=== PATIENT | male | born 1955 | race Caucasian/White ===

== ENCOUNTER → 2022-04-05 | Outpatient (CLI) | payer MEDICAID, SELFPAY | END | disposition home or self-care (01) | LOC: SL 20:10 | PROVIDERS: PCP Student in an Organized Health Care Education/Training Program; Referring Provider Psychiatry & Neurology Sleep Medicine; Visit Provider Psychiatry & Neurology Sleep Medicine | DX: G47.33 Obstructive sleep apnea (adult) (pediatric) (principal); E66.01 Morbid (severe) obesity due to excess calories; Z68.42 Body mass index [BMI] 45.0-49.9, adult | CPT/HCPCS: 95811 ==

== ENCOUNTER → 2022-05-01 | Outpatient (CLI) | payer MEDICAID, SELFPAY | END | disposition home or self-care (01) | LOC: SL 20:24 | PROVIDERS: PCP Student in an Organized Health Care Education/Training Program; Referring Provider Psychiatry & Neurology Sleep Medicine; Visit Provider Psychiatry & Neurology Sleep Medicine | DX: G47.33 Obstructive sleep apnea (adult) (pediatric) (principal) | CPT/HCPCS: 95811 ==

== ENCOUNTER 2022-05-02 17:00 | Outpatient (RCR) | payer MEDICAID, SELFPAY ==
--- NOTE | 2021-12-13 17:40 | HP.PTEVAL_ITS ---
Patient's Visit Information VALENTINO MONTES is a 66 year old M referred to Physical Therapy by Dr. Trent Do DO with a diagnosis of muscle weakness of extremity, inclusion body myositis. Date of Evaluation: 12/13/21 Physical Therapist: LUZ MARIA Sanches - Visit Plan Frequency: 2x /Week Duration: 2 Months Plan: 2X/ week for 8-12 weeks for core strength, LE strength, transfers, gait training, endurance, bed mobility, posture with HEP. HEP: LAQ, SKF with yellow band (daughter to help), Bridges (daughter to help with support and bending of R leg), standing up straight with TKE B and GS in standing - Subjective Dr is telling him that he is having muscle weakness due to myositis and getting weaker. This has been a steady decline over last couple of years. If he falls he has to have big guys to pick him up. He is very careful not to fall. He has had 6 falls in the last 6 months. He has motorized scooter for outside. His house is small and uses the diaz and furniture to balance. He does not walk a whole lot around the house. He does not use any steps in the house. He has a ramp to get into the house. He has never tried PT before. He was in the hospital in March but never got around to schedule it. He is able to get into a car as long as high like an SUV. He has a double raised toilet seat and still struggles to get out of a chair (23 inches to get up out of a chair). Pt was told that he would be in a chair by the end of the year. 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 He has used the walker since March. He sleeps off and on in a bed or a recliner. He can get up out of a bed if he swings the right way. He has a wall by his bed to help him. He lives alone. His daughter checks on him everyday. Pt would like to be walk without a walker again. He can not stand greater than 1 minute to cook his meals. He has recliner lift chair. He has abnormal swelling in B legs and R arm. He wears diabetic style stockings. - Pain LBP Pain Intensity (Out of 10): 3 Pain Intensity Range: 10 Comment: percacet - Objective Gait: walks with a rolling walker with small steppage gait with flexed trunk. Pt is not able to sit in a regular chair as he will not be able to get up so he brings a tall stool to sit on. LE MMT: R hip flex 2-/5, L hip flex 3-/5, B knee ext 3-/5, B knee flex 3-/5, R hip abd 3+/5 and L hip abd 4-/5, pt is not able to get bottom off the mat for a bridge. Pt is able to go sit to supine [place]. Pt needs R leg placement into flexion in order to roll to his R side. He is able to roll to the L side [place] with his R leg in a bend position. L sidelying to sit pt needed min A-mod A to get up to a seated position. Pt is able to do standing hip abd, hip flexion 1 X 10 on each limb standing at the walker. Patellar DTR 0/3. Sit to stand: from mat table that was 22 inches from the ground with feet flat on the floor and extreme wide base of support. He pulled on the walker and struggled to get up but did on second attempt. Standing with small support against back of legs 60 seconds. Pt was able to tolerated some LE exercises including LAQ and yellow T-band HS curls with the help of therapist holding onto the band. - Balance/Special Test Scores Lower Extremity Functional Score: 7 - Goals Goal 1:: I HEP Goal Time Frame: 8-12 Weeks Goal 2:: Be able to stand to microwave his meals (3 minutes). He was able to stand for 60 seconds at time of eval. Goal Time Frame: 8-12 Weeks Goal 3:: Sit to stand out of a chair with 2 cushions on it with arm support to a walker Goal Time Frame: 8-12 Weeks Goal 4:: Be able to lift his leg up to have someone help get his shoes on or get his leg up and into the car with less assistance. Goal Time Frame: 8-12 Weeks Goal 5:: Be able pull R leg into knee flexion bridge position to be able to complete HEP [place] Goal Time Frame: 8-12 Weeks - Rehabilitation Potential Rehabilitation Potential: Fair - Anticipated Interventions Patient/Client Instruction: Educate patient on: Condition, Plan of Care For the Purpose of:: To increase ROM, To improve nutrient delivery to tissue, To improve muscle performance and motor function, To improve ability to perform ADL's, To increase tolerance to activity/condition/position, To improve performance and independence with ADL's, To decrease level of supervision to perform tasks, To improve ability of physical actions for home/community/work/leisure, To improve gait and locomotor functions, To improve health of tissue, To increase flexibility/ROM, To improve endurance, To improve balance, To improve safety with gait Therapeutic Exercise to Include: Strength training, Endurance training, Balance training, Postural training, Flexibilty training, Gait and locomotor training, Neuromotor development, Passive ROM, Active ROM, Dynamic Lumbar Stabilization, Scapular Strength/Stabilization For the Purpose of:: To decrease pain, To improve nutrient delivery to tissue, To increase oxygenation perfusion, To improve muscle performance and motor function, To improve ability to perform ADL's, To increase tolerance to activity/condition/position, To improve performance and independence with ADL's, To decrease level of supervision to perform tasks, To improve ability of physical actions for home/community/work/leisure, To improve gait and locomotor functions, To improve health of tissue, To increase flexibility/ROM, To improve endurance, To improve balance, To improve safety with gait Functional Training to Include: Gait training For the Purpose of:: To improve gait and locomotor functions, To improve safety with gait Manual Therapy Techniques to Include: Passive ROM For the Purpose of:: To increase ROM, To improve nutrient delivery to tissue Thank you for the opportunity to evaluate your patient. For Medicare and Medicare HMO plans, please review the plan of care and approve it. It will need to be FAXED BACK to us at [phone] for Medicare purposes. For Medicare only, by signing this I certify the plan of care. Please let me know if there are questions or concerns regarding this plan of care. Physician Signature: Date:
--- NOTE | 2022-01-02 12:12 | HP.OTEVAL ---
Patient's Visit Information VALENTINO MONTES is a 66 year old M, referred to Occupational Therapy by Dr. Trent Do DO, with a diagnosis of Myositis. Date of Evaluation: 01/01/22 Occupational Therapist: GLORIA Alcantara/Nate, CHT - Subjective This 66 year old male was seen for OT eval with dx of muscle weakness of extremity, inclusion body myositis- Pt states he has been struggling with weakness for about a year- just had muscle biopsy about 2 months ago that states muscle is turning into fat instead of muscled. pt states from shoulders down his arms are weak. pt states he does not carry a gallon milk due to hand weakness. pt states he can not bend over to put socks or shoes because he can not bend over- or lift his legs to put clothes on. 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 - ADLs Fasteners: Buttons, Zippers, Snaps, [place] Comments: use velcro shoe Eating: Use silverware, Cut food Bathing: Handle washcloth & soap, Squeeze shampoo bottle Comments: stands in shower Toileting: Manage clothing, Perineal care Comments: dtr provides meals and cooks - ROM Shoulder: Right/left WNL Elbow: right/ left WNL Forearm: right/left WNL Wrist: right/left WNL ROM Comments: right hand can form a composite fist. left hand is 3 away from composite fist - Strength Shoulder: right 10 peak force left 14 peak force on micro FET2 Elbow: right biceps 20 left 16 biceps triceps 14 peak force School Operations Manager: right 15# left No ability Lateral Pinch: right 2# left 4# Tripod Pinch: right unable left unable Strength Comments: pt demo with intrinsic pulse crystal growing technician vs composite fist. indicating muscle weakness form FDP & FDS - Sensation Sensation Comments: denies - In-Hand Manipulation Finger to Palm Translation: Mild - Right, Moderate - Left Palm to Finger Translation: Mild - Right, Moderate - Left - Quick DASH-Disab of Arm,Shoulder& Hand Quick DASH Score: 61.3625 - Goals Goal:: pt will demo BUE testing of peak force on micro FET2 at greater than 20 peak force indicating increase in BUE strength to perform ADls and IADLs by dc. pt will demo MOHAMUD functional tsf using UE to push off of seated surface indicating increase in BUE strength by dc. pt will demo a increase in bilateral crystal growing technician strength by 30# to increase pts functional strength for ADLs and IADLs by d/c Goal:: pt will demo a increase in left PIPJ flexion and DIPJ flex increasing pts composite fist to hold onto small objects ind. by d/c Goal:: pt will demo understanding of using ad. eq. for ADLs and IADLs to increase ind. and safety when performing occupations of daily living by d.c - Rehabilitation General Assessment: pt demo weakness in BUE limiting pts functional use of bilateral UE for ADLs and IADLs. pt would benefit from skilled OT services 2-3x week for 6 weeks to increase pts functional strength to perform ADls and IADLs. therapy will initiate PRE and ad. eq. to increase pts ind. with ADls and IADLS. pt agrees to POC Rehabilitation Potential: Good - Anticipated Interventions Strengthening, Fine Motor Coord/Jake, Education re assistive Equipment, Education re Diagnosis, Caregiver Training, Home Program - Visit Plan Frequency: 2-3x /Week Duration: 4 Weeks TEXT: Thank you for the opportunity to evaluate your patient. For Medicare and Medicare HMO plans, please review the plan of care and approve it. It will need to be FAXED BACK to us at [phone] for Medicare purposes. Please let me know if there are questions or concerns regarding this plan of care. Physician Signature: Date:
--- NOTE | 2022-01-31 15:58 | HP.PTREVAL_ITS ---
Dr. Trent Do, DO, It has been my pleasure to treat VALENTINO MONTES over the last 11 visits for muscle weakness of extremity, inclusion body myositis. Please see the progress note below for an update on the physical therapy plan of care! Subjective: Pt feels that things are going ok. The nu-step helps. Last time he was put on his back and trying to get knees up to chest and that was painful. Pt paid for it a little bit later. He feels that he is close to losing that aspect. He feels that PT is helping but not very much and not a day and night difference. He feels that getting off commode is a little easier. Once he is moving around it seems somewhat easeir. Pt wants to keep going in PT to see if he can pick his feet up off his ground. He wants to be able to get up a step even with difficulty to be able to go get his hair cut. (one railing and 2-3 steps). Some days he can stand 2-3 min at microwave and other days like today he can only stand 40 seconds. Objective/Function: still unable to lift legs to complete functional task. Attempted chair with 1 blue bad with sit to stand using his arms at the // bars and he was not able to get to standing Plan Plan: Continue to progress towards goals. 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 2x/ week for 8- 12 weeks for core strength, LE strength, transfers, gait training, endurance, bed mobility, posture with HEP Balance/Gait/Functional tests - Balance/Special Test Scores Lower Extremity Functional Score: 12 Goals Goal 1:: I HEP Goal Time Frame: 8-12 Weeks Goal Progress: Progressing Goal 2:: Be able to stand to microwave his meals (3 minutes). He was able to stand for 60 seconds at time of eval. Goal Time Frame: 8-12 Weeks Goal Progress: Progressing Goal 3:: Sit to stand out of a chair with 2 cushions on it with arm support to a walker Goal Time Frame: 8-12 Weeks Goal Progress: Progressing Goal 4:: Be able to lift his leg up to have someone help get his shoes on or get his leg up and into the car with less assistance. Goal Time Frame: 8-12 Weeks Goal 5:: Be able pull R leg into knee flexion bridge position to be able to complete HEP [place] Goal Time Frame: 8-12 Weeks Anticipated Interventions Patient/Client Instruction: Educate patient on: Condition, Plan of Care For the Purpose of:: To increase ROM, To improve nutrient delivery to tissue, To improve muscle performance and motor function, To improve ability to perform ADL's, To increase tolerance to activity/condition/position, To improve performance and independence with ADL's, To decrease level of supervision to per form tasks, To improve ability of physical actions for home/community/work/leisure, To improve gait and locomotor functions, To improve health of tissue, To increase flexibility/ROM, To improve endurance, To improve balance, To improve safety with gait Therapeutic Exercise to Include: Strength training, Endurance training, Balance training, Postural training, Flexibilty training, Gait and locomotor training, Neuromotor development, Passive ROM, Active ROM, Dynamic Lumbar Stabilization, Scapular Strength/Stabilization For the Purpose of:: To decrease pain, To improve nutrient delivery to tissue, To increase oxygenation perfusion, To improve muscle performance and motor function, To improve ability to perform ADL's, To increase tolerance to a ctivity/condition/position, To improve performance and independence with ADL's, To decrease level of supervision to perform tasks, To improve ability of physical actions for home/community/work/leisure, To improve gait and locomotor functions, To improve health of tissue, To increase flexibility/ROM, To improve endurance, To improve balance, To improve safety with gait Functional Training to Include: Gait training For the Purpose of:: To improve gait and locomotor functions, To improve safety with gait Manual Therapy Techniques to Include: Passive ROM For the Purpose of:: To increase ROM, To improve nutrient delivery to tissue Please do not hesitate to contact me at [phone] by phone or if you have questions or concerns regarding this new plan of care! Sincerely, LUZ MARIA Sanches
--- NOTE | 2022-03-07 08:26 | HP.OTDCSUM_ITS ---
It has been my pleasure to treat VALENTINO MONTES under orders from Dr. Trent Do, , for the diagnosis of Myositis for a total of 11 visit(s). Please see the following information for a summary of their discharge status. % Improvement: 10 Objective/Function: R 20# director of operations support. L director of operations support 18#. L composite fist -2 1/2 inches from composite fist using MF R -1 1/2 using MF. He has participated in strengthening using BTE, isometric exercises, weights and theraputty. Pt. has plateaued at this point. Reviewed HEP isometric exercises, pt. verbalized understanding. Patient Goals: Regain Strength, Improve Fine Motor Skills, Be More Independent in ADLS Goal:: pt will demo BUE testing of peak force on micro FET2 at greater than 20 peak force indicating increase in BUE strength to perform ADls and IADLs by dc. pt will demo MOHAMUD functional tsf using UE to push off of seated surface indica ting increase in BUE strength by dc. pt will demo a increase in bilateral director of operations support strength by 30# to increase pts functional strength for ADLs and IADLs by d/c Goal:: pt will demo a increase in left PIPJ flexion and DIPJ flex increasing pts composite fist to hold onto small objects ind. by d/c Goal:: pt will demo understanding of using ad. eq. for ADLs and IADLs to increase ind. and safety when performing occupations of daily living by d.c Plan: check back in 2 weeks (March 05, 2022 at 4) to review measurements to see if he is working/doing exercises at home, then decide if pt. should continue skilled OT services. Discharge Comments: Pt. reported a 10 percent of improvement. He has attended 11 skilled OT treatments. Quick Dash score of 40 today, on eval was 38. Pt. improved with B shoulder strength goal partially met. Pt. has modified his seat height positions and uses higher seat heights, such as bringing in his own higher stool. Ladies Suit Operator strength improved from R 15# to 20#, L from unable to 18#. He is short of making composite fists R -1 1/2 inches using MF, and L -2 1/2 inches using MF. pt demo understanding of using ad. eq. to increase his safety and MOHAMUD with ADLs. pt agree with D/C and to return to if change in status. pt agree. If there are questions or concerns regarding this patient's occupational therapy, please fell free to call me at [phone]. Thank you for the referral of this patient. Sincerely, Tawana Caruso OTR/L, CHT
--- NOTE | 2022-03-29 07:48 | HP.OTEVAL ---
Patient's Visit Information VALENTINO MONTES is a 66 year old M, referred to Occupational Therapy by Dr. Trent Do DO, with a diagnosis of lymphedema of BLE. Date of Evaluation: 03/28/22 Occupational Therapist: Tawana Caruso, GLORIA/Nate, CHT - Subjective This 66 year old male was seen for OT eval dx with LE edema- pt states he has had swelling in his LE for about 5 years- pt states he would sleep and his legs would go down in size- but with the muscle wasting he does notice increase swelling- pt states he is on a water pill 1 x a day and this does help- if he doesn't take his water pill swelling increases. pt states he has not used compression socks in the past- pts dtr states she has zen compression socks for him but they have not worn them yet. Pt would like to know what his options are in mtg. his swelling. - ADLs Fasteners: Buttons, Zippers, Snaps, [place] Comments: use velcro shoe Eating: Use silverware, Cut food Bathing: Handle washcloth & soap, Squeeze shampoo bottle Comments: stands in shower Toileting: Manage clothing, Perineal care Comments: dtr provides meals and cooks - ROM Shoulder: Right/left WNL Elbow: right/ left WNL Forearm: right/left WNL Wrist: right/left WNL ROM Comments: right hand can form a composite fist. left hand is 3 away from composite fist - Strength Shoulder: right 10 peak force left 14 peak force on micro FET2 Elbow: right biceps 20 [id number] left 16 biceps triceps 14 peak force Senior Mechanical Design Engineer: right 15# left No ability Lateral Pinch: right 2# left 4# Tripod Pinch: right unable left unable Strength Comments: pt demo with intrinsic pulse sociology research assistant vs composite fist. indicating muscle weakness form FDP & FDS - Lymphedema (Circumferential Measure) Mid-foot: right 31cm left 30cm Ankle: right 34cm left 33cm Lower calf: right 39cm left 37.5cm Largest calf: right 45cm left 45cm Below knee: right 42cm left 41cm - Sensation Sensation Comments: denies - In-Hand Manipulation Finger to Palm Translation: Mild - Right, Moderate - Left Palm to Finger Translation: Mild - Right, Moderate - Left - Quick DASH-Disab of Arm,Shoulder& Hand Quick DASH Score: 65.9075 - Goals Demonstrate a 20% reduction in edema by d/c: Yes Demonstrate adequate knowledge of self-massage by 2nd week: Yes Demonstrate adequate knowledge skin care/prec by 2nd week: Yes Demonstrate adequate knowledge therapeutic exercises by d/c: Yes Select approp compression garment w/donning/care/wear by d/c: Yes Voice need to replace compression garment every 4-6mo by dc: Yes Goal:: pt will demo BUE testing of peak force on micro FET2 at greater than 20 peak force indicating increase in BUE strength to perform ADls and IADLs by dc. pt will demo MOHAMUD functional tsf using UE to push off of seated surface indicating increase in BUE strength by dc. pt will demo a increase in bilateral sociology research assistant strength by 30# to increase pts functional strength for ADLs and IADLs by d/c Goal:: pt will demo a increase in left PIPJ flexion and DIPJ flex increasing pts composite fist to hold onto small objects ind. by d/c Goal:: pt will demo understanding of using ad. eq. for ADLs and IADLs to increase ind. and safety when performing occupations of daily living by d.c - Rehabilitation General Assessment: pt demo with LE swelling- pt would benefit from skilled OT services 2-3 visits to ensure understanding of dx, treatments and home mtg. of LE edema- Today therapist ed. pt and pts dtr on using Velcro closure compression garments due to pts limitations with sociology research assistant and pinch strength- Therapist also ed. pt on Lymph stim Exercises and self manual lymph drainage massage. pt was given handout on ex. and also ed. on need of compression device ( 20-30 mmHg) socks or velcro closure device- pt can get fitted at DME supplies as [employer] or [employer]- pt receptive but unsure of ability due to weakness- pt to return once he gets his compression garment to ensure correct donning or doffing and fit- pt agrees to POC. Rehabilitation Potential: Questionable - Anticipated Interventions Education re Diagnosis, Manual Lymph Drainage, Education re Life-long lymphedema Management, Education re Skin Care and Precautions, Education re Self Massage Techniques, Education re Correct Donning Tech,Care&Wearing Sched Comp Garments, Caregiver Training, Home Program - Visit Plan Frequency: 2-3x /Week Duration: 4 Weeks TEXT: Thank you for the opportunity to evaluate your patient. For Medicare and Medicare HMO plans, please review the plan of care and approve it. It will need to be FAXED BACK to us at [phone] for Medicare purposes. Please let me know if there are questions or concerns regarding this plan of care. Physician Signature: Date:
--- NOTE | 2022-03-29 08:08 | HP.OTEVAL_ITS ---
Patient's Visit Information VALENTINO MONTES is a 66 year old M, referred to Occupational Therapy by Dr. Trent Do DO, with a diagnosis of lymphedema of BLE. Date of Evaluation: 03/28/22 Occupational Therapist: Tawana Caruso, GLORIA/Nate, CHT - Subjective This 66 year old male was seen for OT eval dx with LE edema- pt states he has had swelling in his LE for about 5 years- pt states he would sleep and his legs would go down in size- but with the muscle wasting he does notice increase swelling- pt states he is on a water pill 1 x a day and this does help- if he doesn't take his water pill swelling increases. pt states he has not used compression socks in the past- pts dtr states she has zen compression socks for him but they have not worn them yet. Pt would like to know what his options are in mtg. his swelling. - ADLs Fasteners: Buttons, Zippers, Snaps, [place] Comments: use velcro shoe Eating: Use silverware, Cut food Bathing: Handle washcloth & soap, Squeeze shampoo bottle Comments: stands in shower Toileting: Manage clothing, Perineal care Comments: dtr provides meals and cooks - ROM Shoulder: Right/left WNL Elbow: right/ left WNL Forearm: right/left WNL Wrist: right/left WNL ROM Comments: right hand can form a composite fist. left hand is 3 away from composite fist - Strength Shoulder: right 10 peak force left 14 peak force on micro FET2 Elbow: right biceps 20 [email or web address] left 16 biceps triceps 14 peak force Orthopedic Designer: right 15# left No ability Lateral Pinch: right 2# left 4# Tripod Pinch: right unable left unable Strength Comments: pt demo with intrinsic pulse churn driller vs composite fist. 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 Ankle: right 34cm left 33cm. Lower calf: right 39cm left 37.5cm. Largest calf: right 45cm left 45cm. Below knee: right 42cm left 41cm - Sensation Sensation Comments: denies - In-Hand Manipulation Finger to Palm Translation: Mild - Right, Moderate - Left Palm to Finger Translation: Mild - Right, Moderate - Left - Lower Limb Functional Index Lower Extremity Functional Score: 9 - Quick DASH-Disab of Arm,Shoulder& Hand Quick DASH Score: 65.9075 - Goals Demonstrate a 20% reduction in edema by d/c: Yes Demonstrate adequate knowledge of self-massage by 2nd week: Yes Demonstrate adequate knowledge skin care/prec by 2nd week: Yes Demonstrate adequate knowledge therapeutic exercises by d/c: Yes Select approp compression garment w/donning/care/wear by d/c: Yes Voice need to replace compression garment every 4-6mo by dc: Yes Goal:: pt will demo BUE testing of peak force on micro FET2 at greater than 20 peak force indicating increase in BUE strength to perform ADls and IADLs by dc. pt will demo MOHAMUD functional tsf using UE to push off of seated surface indicating increase in BUE strength by dc. pt will demo a increase in bilateral churn driller strength by 30# to increase pts functional strength for ADLs and IADLs by d/c Goal:: pt will demo a increase in left PIPJ flexion and DIPJ flex increasing pts composite fist to hold onto small objects ind. by d/c Goal:: pt will demo understanding of using ad. eq. for ADLs and IADLs to increase ind. and safety when performing occupations of daily living by d.c - Rehabilitation General Assessment: pt demo with LE swelling- pt would benefit from skilled OT services 2-3 visits to ensure understanding of dx, treatments and home mtg. of LE edema- Today therapist ed. pt and pts dtr on using Velcro closure compression garments due to pts limitations with churn driller and pinch strength- Therapist also ed. pt on Lymph stim Exercises and self manual lymph drainage massage. pt was given handout on ex. and also ed. on need of compression device ( 20-30 mmHg) socks or velcro closure device- pt can get fitted at DME supplies as [employer] or [employer]- pt receptive but unsure of ability due to weakness- pt to return once he gets his compression garment to ensure correct donning or doffing and fit- pt agrees to POC. Rehabilitation Potential: Questionable - Anticipated Interventions Education re Diagnosis, Manual Lymph Drainage, Education re Life-long lymphedema Management, Education re Skin Care and Precautions, Education re Self Massage Techniques, Education re Correct Donning Tech,Care&Wearing Sched Comp Garments, Caregiver Training, Home Program - Visit Plan Frequency: 2-3x /Week Duration: 4 Weeks TEXT: Thank you for the opportunity to evaluate your patient. For Medicare and Medicare HMO plans, please review the plan of care and approve it. It will need to be FAXED BACK to us at [phone] for Medicare purposes. Please let me know if there are questions or concerns regarding this plan of care. Physician Signature: Date:
--- NOTE | 2022-03-29 08:09 | HP.OTEVAL_ITS ---
Patient's Visit Information VALENTINO MONTES is a 66 year old M, referred to Occupational Therapy by Dr. Trent Do DO, with a diagnosis of lymphedema of BLE. Date of Evaluation: 03/28/22 Occupational Therapist: Tawana Caruso, GLORIA/Nate, CHT - Subjective This 66 year old male was seen for OT eval dx with LE edema- pt states he has had swelling in his LE for about 5 years- pt states he would sleep and his legs would go down in size- but with the muscle wasting he does notice increase swelling- pt states he is on a water pill 1 x a day and this does help- if he doesn't take his water pill swelling increases. pt states he has not used compression socks in the past- pts dtr states she has zen compression socks for him but they have not worn them yet. Pt would like to know what his options are in mtg. his swelling. - ADLs Fasteners: Buttons, Zippers, Snaps, [place] Comments: use velcro shoe Eating: Use silverware, Cut food Bathing: Handle washcloth & soap, Squeeze shampoo bottle Comments: stands in shower Toileting: Manage clothing, Perineal care Comments: dtr provides meals and cooks - ROM Shoulder: Right/left WNL Elbow: right/ left WNL Forearm: right/left WNL Wrist: right/left WNL ROM Comments: right hand can form a composite fist. left hand is 3 away from composite fist - Strength Shoulder: right 10 peak force left 14 peak force on micro FET2 Elbow: right biceps 20 [id number] left 16 biceps triceps 14 peak force Supervisor Inventory Merchandising: right 15# left No ability Lateral Pinch: right 2# left 4# Tripod Pinch: right unable left unable Strength Comments: pt demo with intrinsic pulse extrusion die repair manager vs composite fist. 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 Ankle: right 34cm left 33cm. Lower calf: right 39cm left 37.5cm. Largest calf: right 45cm left 45cm. Below knee: right 42cm left 41cm - Sensation Sensation Comments: denies - In-Hand Manipulation Finger to Palm Translation: Mild - Right, Moderate - Left Palm to Finger Translation: Mild - Right, Moderate - Left - Lower Limb Functional Index Lower Extremity Functional Score: 9 - Quick DASH-Disab of Arm,Shoulder& Hand Quick DASH Score: 65.9075 - Goals Demonstrate a 20% reduction in edema by d/c: Yes Demonstrate adequate knowledge of self-massage by 2nd week: Yes Demonstrate adequate knowledge skin care/prec by 2nd week: Yes Demonstrate adequate knowledge therapeutic exercises by d/c: Yes Select approp compression garment w/donning/care/wear by d/c: Yes Voice need to replace compression garment every 4-6mo by dc: Yes Goal:: pt will demo BUE testing of peak force on micro FET2 at greater than 20 peak force indicating increase in BUE strength to perform ADls and IADLs by dc. pt will demo MOHAMUD functional tsf using UE to push off of seated surface indicating increase in BUE strength by dc. pt will demo a increase in bilateral extrusion die repair manager strength by 30# to increase pts functional strength for ADLs and IADLs by d/c Goal:: pt will demo a increase in left PIPJ flexion and DIPJ flex increasing pts composite fist to hold onto small objects ind. by d/c Goal:: pt will demo understanding of using ad. eq. for ADLs and IADLs to increase ind. and safety when performing occupations of daily living by d.c - Rehabilitation General Assessment: pt demo with LE swelling- pt would benefit from skilled OT services 2-3 visits to ensure understanding of dx, treatments and home mtg. of LE edema- Today therapist ed. pt and pts dtr on using Velcro closure compression garments due to pts limitations with extrusion die repair manager and pinch strength- Therapist also ed. pt on Lymph stim Exercises and self manual lymph drainage massage. pt was given handout on ex. and also ed. on need of compression device ( 20-30 mmHg) socks or velcro closure device- pt can get fitted at DME supplies as [employer] or [employer]- pt receptive but unsure of ability due to weakness- pt to return once he gets his compression garment to ensure correct donning or doffing and fit- pt agrees to POC. Rehabilitation Potential: Questionable - Anticipated Interventions Education re Diagnosis, Manual Lymph Drainage, Education re Life-long lymphedema Management, Education re Skin Care and Precautions, Education re Self Massage Techniques, Education re Correct Donning Tech,Care&Wearing Sched Comp Garments, Caregiver Training, Home Program - Visit Plan Frequency: 2-3x /Week Duration: 4 Weeks TEXT: Thank you for the opportunity to evaluate your patient. For Medicare and Medicare HMO plans, please review the plan of care and approve it. It will need to be FAXED BACK to us at [phone] for Medicare purposes. Please let me know if there are questions or concerns regarding this plan of care. Physician Signature: Date:
--- NOTE | 2022-03-29 08:11 | HP.OTEVAL_ITS ---
Patient's Visit Information VALENTINO MONTES is a 66 year old M, referred to Occupational Therapy by Dr. Trent Do DO, with a diagnosis of lymphedema of BLE. Date of Evaluation: 03/28/22 Occupational Therapist: GLORIA Alcantara/Nate, CHT - Subjective This 66 year old male was seen for OT eval dx with LE edema- pt states he has had swelling in his LE for about 5 years- pt states he would sleep and his legs would go down in size- but with the muscle wasting he does notice increase swelling- pt states he is on a water pill 1 x a day and this does help- if he doesn't take his water pill swelling increases. pt states he has not used compression socks in the past- pts dtr states she has zen compression socks for him but they have not worn them yet. Pt would like to know what his options are in mtg. his swelling. - ADLs Comments: use velcro shoe Comments: stands in shower Comments: dtr provides meals and cooks - Lymphedema (Circumferential Measure) Mid-foot: right 31cm left 30cm Ankle: right 34cm left 33cm Lower calf: right 39cm left 37.5cm Largest calf: right 45cm left 45cm Below knee: right 42cm left 41cm Lower Exremity Comments: Mid-foot: right 31cm left 30cm. Ankle: right 34cm left 33cm. Lower calf: right 39cm left 37.5cm. Largest calf: right 45cm left 45cm. Below knee: right 42cm left 41cm - Sensation Sensation Comments: denies - Lower Limb Functional Index Lower Extremity Functional Score: 9 - Quick DASH-Disab of Arm,Shoulder& Hand Quick DASH Score: 65.9075 - Goals Demonstrate a 20% reduction in edema by d/c: Yes Demonstrate adequate knowledge of self-massage by 2nd week: Yes Demonstrate adequate knowledge skin care/prec by 2nd week: Yes Demonstrate adequate knowledge therapeutic exercises by d/c: Yes Select approp compression garment w/donning/care/wear by d/c: Yes Voice need to replace compression garment every 4-6mo by dc: Yes Goal:: pt will demo understanding of using ad. eq. for ADLs and IADLs to increase ind. and safety when performing occupations of daily living by d.c - Rehabilitation General Assessment: pt demo with LE swelling- pt would benefit from skilled OT services 2-3 visits to ensure understanding of dx, treatments and home mtg. of LE edema- Today therapist ed. pt and pts dtr on using Velcro closure compression garments due to pts limitations with clinical pharmacy coordinator and pinch strength- Therapist also ed. pt on Lymph stim Exercises and self manual lymph drainage massage. pt was given handout on ex. and also ed. on need of compression device ( 20-30 mmHg) socks or velcro closure device- pt can get fitted at DME supplies as [employer] or [employer]- pt receptive but unsure of ability due to weakness- pt to return once he gets his compression garment to ensure correct donning or doffing and fit- pt agrees to POC. Rehabilitation Potential: Questionable - Anticipated Interventions Education re Diagnosis, Manual Lymph Drainage, Education re Life-long lymphedema Management, Education re Skin Care and Precautions, Education re Self Massage Techniques, Education re Correct Donning Tech,Care&Wearing Sched Comp Garments, Caregiver Training, Home Program - Visit Plan Frequency: 2-3x /Week Duration: 4 Weeks TEXT: Thank you for the opportunity to evaluate your patient. For Medicare and Medicare HMO plans, please review the plan of care and approve it. It will need to be FAXED BACK to us at [phone] for Medicare purposes. Please let me know if there are questions or concerns regarding this plan of care. Physician Signature: Date:
--- NOTE | 2022-05-02 17:58 | HP.PTDCSUM ---
It has been my pleasure to treat VALENTINO MONTES referred by Dr. Trent Do DO, with the diagnosis of muscle weakness of extremity, inclusion body myositis for a total of 28 visit(s). Discharge Date: 05/02/22 Please see the following information for a summary of their discharge status. Subjective: Pt thinks that there are improvements but they are slow. Pt is able to lift his foot to 6 inch box. He feels more steady walking around the building and faster. Pt has also noticed improvements in sit to stands... can not get down any lower but easier from where he is at. He is noticed getting stronger in his core. He is trying to do some exercises at home. Pt has tools that help him get his shoes on. He still needs help to get his legs in the car. Pt can work to get his foot inside his shoe in sitting if he works at it but tries to do it in standing. Pt sees his Dr in May. He will try and stay active unless really hot. LBP Pain Intensity (Out of 10): 0 shoulder Pain Intensity (Out of 10): 0 Legs Pain Intensity (Out of 10): 5 % Improvement: 40 Objective/Function: Pt has improved hip flexion to clear foot to get onto a 6 inch step. His overall walking endurance has improved as well as his standing endurance as he does not have to bring in a stool anymore to be able to sit down on and his overall sit to stands have improved as well/ Goal 1:: I HEP Goal Progress: Progressing Goal 2:: Be able to stand to microwave his meals (5 minutes). He was able to stand for 60 seconds at time of eval. Goal Progress: 03-07-22 3 min 47 sec Goal 3:: Sit to stand out of a chair with 2 cushions on it with arm support to a walker Goal Progress: Progressing Goal 4:: Be able to lift his leg up to have someone help get his shoes on or get his leg up and into the car with less assistance. Goal Progress: Progressing Goal 5:: Be able pull R leg into knee flexion bridge position to be able to complete HEP Tosin Plan: Pt to try HEP on own to keep up walking endurance and functional strength. Will look into getting tubing to continue with HEP and will issue purple band for HS curls for at home. Pt will discuss progress with his physician towards fall. Discharge Comments: DC PT to HEP If there are questions or concerns regarding this patient's physical therapy, please feel free to call me at [phone]. Thank you for the referral of this patient. Sincerely, Evelyn Plunkett, MPT Balance/Gait/Functional tests - Balance/Special Test Scores Lower Extremity Functional Score: 24
== END 2022-05-02 19:00 | disposition home or self-care (01) ==
LOC: PT 17:00
PROVIDERS: PCP Student in an Organized Health Care Education/Training Program; Referring Provider Student in an Organized Health Care Education/Training Program; Visit Provider Student in an Organized Health Care Education/Training Program
DX: M62.81 Muscle weakness (generalized) (principal); G72.41 Inclusion body myositis [IBM]
CPT/HCPCS: 97110; 97162; 97165; 97166; 97530

== ENCOUNTER 2022-11-06 10:04 | Emergency (ER) | payer MEDICAID, SELFPAY ==
[2022-11-06 10:06] VITALS: PULSE 101; RESP 18; TEMP 36.6; O2SAT 96; BMI 43.5
[2022-11-06 10:10] VITALS: BP 144/78
--- NOTE | 2022-11-06 10:51 | RAD_ITS ---
STUDY: X-RAY - LUMBAR SPINE REASON FOR EXAM: Male, 67 years old. Pain, fall TECHNIQUE: 5 view(s) of the lumbar spine were obtained including oblique views. COMPARISON: None FINDINGS: Normal lumbar lordosis. There is no substantial scoliosis. There is a normal alignment of the vertebrae. There is multilevel endplate spondylosis of the lumbar vertebrae. There is multi-level degenerative disc disease with multi-level disc space narrowing. Fusion at the T12-L1 level with approximately 50% collapse of the L1 vertebrae most likely secondary to old trauma. The soft tissue structures are unremarkable. RAD/L/S Spine Min 4 Views IMPRESSION: Partial collapse of the L1 vertebrae most likely old. Fusion at the T12-L1 level. Electronically Signed: Dc Bergeron MD at 12:29 EST ,
--- NOTE | 2022-11-06 10:51 | CT_ITS ---
STUDY: CT BRAIN WITHOUT CONTRAST REASON FOR EXAM: Male, 67 years old. Closed head injury due to a fall. RADIATION DOSAGE (If Supplied By Facility): CTDIvol = ( 44.99 ) mGy, DLP = ( 863.60 ) mGycm TECHNIQUE: Transaxial CT imaging of the brain was performed without administration of intravenous contrast material. Individualized dose optimization techniques were used for this CT. COMPARISON: No relevant priors. FINDINGS: Normal soft tissue structures. Normal calvarium. There is mild cerebral atrophy with widening of the extra-axial spaces and ventricular dilatation. Normal white matter tracts of the cerebral hemispheres. Normal basal ganglia and thalami. Normal brainstem. Normal cerebellum. There is no intracranial hemorrhage. There are no findings of an acute ischemic infarction. Normal visualized paranasal sinuses. CT/Brain/Head without Contrast IMPRESSION: Chronic involutional changes of the brain. Electronically Signed: Dc Bergeron MD at 11:29 EST ,
--- NOTE | 2022-11-06 10:55 | NURSING ---
NO OLD EKGS
[2022-11-06] MEDS: 0.9% Normal Saline 1,000 ML 999 ML IV (11:08)
--- NOTE | 2022-11-06 11:20 | RAD_ITS ---
STUDY: X-RAY CHEST REASON FOR EXAM: Male, 67 years old. Weakness TECHNIQUE: AP and lateral views of the chest. COMPARISON: None. FINDINGS: EKG electrodes are seen. The lungs are clear and expanded. There is no demonstrated pleural abnormality. Normal size heart. Normal mediastinum and quyen. Normal visualized pulmonary arteries. Normal visualized aortic arch and descending thoracic aorta. Normal visualized thoracic spine. Normal visualized ribs, clavicles, and shoulders. There is no demonstrated abnormality of the visualized soft tissue structures of the upper abdomen. RAD/Chest PA and Lateral IMPRESSION: Normal x-ray examination of the chest. Electronically Signed: Dc Bergeron MD at 12:29 EST ,
[2022-11-06 11:21] LABS: Absolute Lymphocyte Count 2.22 X10^3/uL (0.83-4.51); Absolute Neutrophil Count 5.2 X10^3/uL (2.0-7.7); Basophil# 0.06 X10^3/uL; Basophil% 0.7 % (0-1); Eosinophil# 0.42 X10^3/uL; Hematocrit 40.6 % (40-54); Lymphocyte # 2.22 X10^3/ul (0.83-4.51); Lymphocyte % 26.3 % (19-41); Mean Corp Hgb Conc 34.5 g/dL (32-36); Mean Corpuscular Hgb 30.2 pg (27.0-32.0); Mean Corpuscular Volume 87.5 fL (80-94); Mean Platelet Vol. 9.7 fl (6.2-12.0); Monocyte# 0.57 X10^3/uL; Monocyte% 6.7 % (0-10); NRBC Flagged by Analyzer 0 % (0-5); Neutrophil # 5.15 X10^3/uL (2.7-7.7); Neutrophil % 60.9 % (47-70); Platelet Count 212 K/mm3 (150-450); RBC Distribution Width CV 14.6 % (11.6-14.6); RBC Distribution Width SD 46.5 fl (35.1-43.9); Red Blood Count 4.64 M/mm3 (4.6-6.2); White Blood Count 8.5 K/mm3 (4.4-11.0)
[2022-11-06 11:47] VITALS: BP 156/71; PULSE 102; RESP 18; O2SAT 98
[2022-11-06 11:50] LABS: Anion Gap 8 (5-15); BUN 27 mg/dL (7-18); BUN/Creat Ratio 29.9 RATIO (10-20); CPK Total, Creatine Kinase 366 U/L (39-308); Calcium,Total 9.1 mg/dL (8.5-10.1); Chloride 106 mmol/L (98-107); EST Glomerular Filtration Rate 89 mL/min (>60); Est Glom Filt Rate - Afr Amer 108 mL/min (>60); Estimated Creatinine Clearance 80.74 ml/min; Glucose 105 mg/dL (74-106); Potassium 4.2 mmol/L (3.5-5.1); Sodium Level 140 mmol/L (136-145)
[2022-11-06 13:07] VITALS: BP 153/74; PULSE 109; RESP 18; O2SAT 98
[2022-11-06 13:13] LABS: Bacteria 0 SEEN /hpf (None Seen); Mucous, Urine 0 SEEN /hpf (<or=2+); Red Blood Cells-Urine 0 SEEN /hpf (0-5); Squamous Epithelial Cells - UA 0 SEEN /hpf (0-5); White Blood Cells 0 SEEN /hpf (0-5)
[2022-11-06 13:17] LABS: Color, Urine Yellow (Yellow); Glucose, Dipstick Normal (Normal); Ketone-Dipstick Negative (Negative); Leukocyte Esterase-Dipstick Negative /ul (Negative); Nitrite-Dipstick Negative (Negative); Occult Blood-Urine Negative /ul (Negative); Protein-Dipstick 15 mg/dl (Negative); Specific Gravity, Urine 1.015 (1.002-1.030); Urine Bilirubin Dipstick Negative (Negative); Urine Clarity Clear (Clear); Urine Urobilinogen Normal (Normal)
--- NOTE | 2022-11-06 14:27 | ED.VIS.FALL ---
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 Patient states his legs just gave out on him when he was using his walker and he fell backwards. He landed on his buttocks and lower back and in the momentum took him to the ground further and he did hit his head. Denies any loss of consciousness. Denies any headache. Is complain of some mild pain of his right great toe where he feels like he hyperextended it when he fell.Patient notes he had progressive weakness but denies any acute changes. Patient states he is done physical therapy but he has been told at some point he is going just need to be in a wheelchair full-time. Denies any progressive symptoms at this time. No she does feel anxious about being in the hospital. Denies any reported fever or infectious symptoms. [facility] Medical History Fall Home Medications bumetanide 2 mg tablet 2 mg PO DAILY 11/06/22 [History Last Taken Unknown] cetirizine 10 mg tablet 10 mg PO DAILY 11/06/22 [History Last Taken Unknown] ergocalciferol (vitamin D2) 1,250 mcg (50,000 unit) capsule 50,000 unit PO QWEEK 11/06/22 [History Last Taken Unknown] metoprolol tartrate 25 mg tablet 12.5 mg PO BID 11/06/22 [History Last Taken Unknown] oxycodone-acetaminophen 5 mg-325 mg tablet 1 tab PO Q8H PRN Pain 11/06/22 [History Last Taken Unknown] potassium chloride 20 mEq tablet,extended release 20 meq PO BID 11/06/22 [History Last Taken Unknown] sertraline 50 mg tablet 50 mg PO QHS 11/06/22 [History Last Taken Unknown] Allergy/AdvReac Type Severity Reaction Status Date / Time No Known Allergies Allergy Verified 11/06/22 10:06 Social History Smoking Status: Never smoker ROS ROS ED Constitutional Constitutional ED: Reports other Details: Generalized weakness ; Denies chills or fever(s) Eyes Eyes: Denies change in vision ENT ENT ED: Denies rhinorrhea or sore throat Cardiovascular Cardiovascular: Denies chest pain Respiratory/Chest Respiratory/Chest: Denies cough or dyspnea Gastrointestinal Gastrointestinal: Denies abdominal pain, diarrhea, nausea or vomiting Genitourinary Genitourinary ED: Denies dysuria or hematuria Musculoskeletal Musculoskeletal: Reports arthralgias, back pain and myalgias Integumentary Denies rash Neurologic Neurologic: Reports weakness; Denies headache(s) or paresthesias Psychiatric Psychiatric: Denies anxiety Hematologic/Lymphatic Hematologic/Lymphatic: Denies easy bleeding or easy bruising EXAM Physical Exam Const Vital Signs: 11/06/22 10:06 11/06/22 10:10 11/06/22 10:15 Temperature 97.9 F Temperature Source Temporal Pulse Rate 101 H Respiratory Rate 18 Respiratory Effort Normal Non-Labored Respiratory Depth Normal Respiratory Pattern Normal Blood Pressure 144/78 H Blood Pressure Mean 100 Pulse Ox 96 Oxygen Delivery Method Room Air 11/06/22 11:47 11/06/22 13:07 Temperature Temperature Source Pulse Rate 102 H 109 H Respiratory Rate 18 18 Respiratory Effort Respiratory Depth Respiratory Pattern Blood Pressure 156/71 H 153/74 H Blood Pressure Mean 99 100 Pulse Ox 98 98 Oxygen Delivery Method Room Air Room Air Positive well nourished and well developed General Appearance ED: well developed and NAD HEENT Reports normocephalic atraumatic Eyes PERRL and EOMs intact bilaterally Neck supple Chest Wall inspection of chest normal and palpation of chest normal Resp normal respiratory effort and no retractions Cardio regular rate, regular rhythm and no murmurs GI non-tender and non-distended Extremity Extremity Narrative: No deformity. No pedal edema at this time. Neuro oriented x3 and moves all extremities Neuro Narrative: Generalized weakness no focal deficits Psych mental status grossly normal and thought process normal MDM MDM MDM Narrative Medical decision making narrative: Patient is evaluated for a fall and unable to get back up. He states it is normal when he falls he is not able to get back up. EMS report reviewed which states the patient was found laying on the left side on the ground and has chronic weakness. Did feel like he rolled his right foot the wrong way and they could not get patient ambulate with his walker so he was brought to the ER for further evaluation. Patient feels that he is at his physical baseline right now. He consents to metabolic work-up looking for signs of infection or other causes of of progressive weakness. His CK is mildly elevated at 366 however I do not think this requires further intervention. He is given IV fluids in the ER. X-ray of the lumbar spine interpreted myself as well as radiology does show chronic L1 compression fracture but no other acute process. CT of the brain does not show any acute process. Patient is able to ambulate with a walker in the ER but slowly. Will be discharged home as he does not want admission for physical therapy evaluation/rehab. Social work discussed with him about arranging outpatient resources such as case management, home health and physical therapy. X-ray of the right foot ordered which is interpreted by myself as well as radiology. There are chronic changes no acute fracture. Likely patient just strained/sprained his foot when he fell. Patient again encouraged to follow with primary care doctor. Given return precautions. Lab Data Attestation: I reviewed the patient's lab results. Labs: Laboratory Results - last 24 hr 11/06/22 11/06/22 11/06/22 11:05 11:05 13:00 WBC 8.5 RBC 4.64 Hgb 14.0 Hct 40.6 MCV 87.5 MCH 30.2 MCHC 34.5 RDW Std Deviation 46.5 H RDW Coeff of Yani 14.6 Plt Count 212 MPV 9.7 Immature Gran % (Auto) 0.400 Neut % (Auto) 60.9 Lymph % (Auto) 26.3 [place] % (Auto) 6.7 Eos % (Auto) 5.0 Baso % (Auto) 0.7 Absolute Neuts (auto) 5.2 Absolute Lymphs (auto) 2.22 Nucleated RBC % 0 Sodium 140 Potassium 4.2 Chloride 106 Carbon Dioxide 26.0 Anion Gap 8 BUN 27 H Creatinine 0.90 Estim Creat Clear Calc 80.74 Est GFR (MDRD) Af Amer 108 Est GFR (MDRD) Non-Af 89 BUN/Creatinine Ratio 29.9 H Glucose 105 Calcium 9.1 Total Creatine Kinase 366 H Urine Color Yellow Urine Clarity Clear Urine pH 6.0 Ur Specific [place] 1.015 Urine Protein 15 H Urine Glucose (UA) Normal Urine Ketones Negative Urine Occult Blood Negative Urine Nitrite Negative Urine Bilirubin Negative Urine Urobilinogen Normal Ur Leukocyte Esterase Negative Urine RBC 0 SEEN Urine WBC 0 SEEN Ur Squamous Epith Cells 0 SEEN Urine Bacteria 0 SEEN Urine Mucus 0 SEEN Radiography Diagnostic Testing: Clinical Impression(s) from Imaging Studies Brain CT 11/06/22 10:51 IMPRESSION: Chronic involutional changes of the brain. Electronically Signed: Dc Bergeron MD at 11:29 EST , Lumbar Spine X-Ray 11/06/22 10:51 IMPRESSION: Partial collapse of the L1 vertebrae most likely old. Fusion at the T12-L1 level. Electronically Signed: Dc Bergeron MD at 12:29 EST , Chest X-Ray 11/06/22 11:20 IMPRESSION: Normal x-ray examination of the chest. Electronically Signed: Dc Bergeron MD at 12:29 EST , Foot X-Ray 11/06/22 14:40 IMPRESSION: Soft tissue swelling. Degenerative changes at the first metatarsophalangeal joint. Electronically Signed: Dc Bergeron MD at 15:09 EST , Discharge Plan Triage Chief Complaint: Fall Other Complaint: Weakness ED Provider: Karissa Siddiqui Dx/Rx/DC Orders Clinical Impression: Falls, Generalized weakness, Inclusion body myositis, Right foot sprain Instructions: ED Weakness (Uncertain Cause), ED Fall Prevention Prescriptions: No Action bumetanide 2 mg Tablet 2 mg PO DAILY cetirizine 10 mg Tablet 10 mg PO DAILY oxycodone-acetaminophen 5-325 mg Tablet 1 tab PO Q8H PRN (Reason: Pain) ergocalciferol (vitamin D2) 1,250 mcg (50,000 unit) capsule 50,000 unit PO QWEEK sertraline 50 mg Tablet 50 mg PO QHS metoprolol tartrate 25 mg Tablet 12.5 mg PO BID potassium chloride 20 mEq Tablet Extended Release 20 meq PO BID Primary Care Provider: Trent Do Referrals: Trent Do, [Primary Care Provider] - Activity Restrictions/Additional Instructions: Please call your doctor tomorrow about outpatient follow-up for home health, physical therapy and case management. Return if you have worsening of your weakness, further falls or further concerns. Disposition Disposition: Home, Self Care
--- NOTE | 2022-11-06 14:40 | RAD_ITS ---
STUDY: X-RAY - RIGHT FOOT CLINICAL: Male, 67 years old. Pain following a fall. TECHNIQUE: 3 view(s) of the foot. COMPARISON: None. FINDINGS: There is a plantar calcaneal spur. Normal visualized subtalar, talonavicular, calcaneocuboid, tarsal and tarsometatarsal articulations. Normal metatarsi. There is degenerative arthrosis of the metatarsophalangeal joint of the hallux . Normal tibial and fibular sesamoid bones. Normal interphalangeal joint of the great toe. Normal phalanges of the great toe. Normal second through fifth metatarsophalangeal joints. Normal interphalangeal joints and phalanges of the lesser toes. Soft tissue swelling. RAD/Foot min 3 Views IMPRESSION: Soft tissue swelling. Degenerative changes at the first metatarsophalangeal joint. Electronically Signed: Dc Bergeron MD at 15:09 EST ,
--- NOTE | 2022-11-06 15:18 | CM.ED ---
FELISA Note Referral Source: MD Siddiqui Referral Reason: resources MD Siddiqui met with FELISA and reported patient was going to be returning home and would benefit from discussing possible resources to provide support at home. 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 SW requested permission to speak to the patient with his daughter present, patient agreed. SW explained she was informed by patient's doctor he wanted to return home and could benefit from resources for support at home. Patient explained he has been independent at home with some assistance from his daughter with cooking and cleaning. Patient inquired about what services were available for additional support at home. SW reviewed information regarding the [facility], Home [facility] Care as well as [facility]. Patient explained he was not interested in referrals for those services but was willing to take the information if he was interested at a later date. SW provided patient with the brochures for [facility] programs and information sheet with contact information for [facility]. SW also explained there were other home health agencies, patient not interested in a list at this time. Chely Carter MSW, [facility]
[2022-11-06 15:24] VITALS: PULSE 100; RESP 18; O2SAT 98
== END 2022-11-06 15:55 | disposition home or self-care (01) ==
PROVIDERS: Emergency Provider Emergency Medicine; PCP Student in an Organized Health Care Education/Training Program; Visit Provider Emergency Medicine
DX: S93.601A Unspecified sprain of right foot, initial encounter (principal); S32.010A Wedge compression fracture of first lumbar vertebra, initial encounter for closed fracture; R53.1 Weakness; W19.XXXA Unspecified fall, initial encounter
CPT/HCPCS: 51701; 70450; 71046; 72110; 73630; 80048; 81001; 82550; 85025; 93005; 96360; 99285; J7030; P9612; A4216

== ENCOUNTER 2024-11-18 20:30 | Inpatient (IN) | payer MEDICARE, SELFPAY ==
[2024-11-18 20:30] VITALS: BP 185/89; PULSE 133; RESP 20; TEMP 37.4; O2SAT 92
--- NOTE | 2024-11-18 21:45 | RAD_ITS ---
STUDY: X-RAY CHEST REASON FOR EXAM: Male, 69 years old. weakness TECHNIQUE: AP portable COMPARISON: November 06, 2022 FINDINGS: There is mild asymmetric interstitial thickening in the right lower lobe of uncertain etiology possibly due to inflammatory changes. There is no demonstrated pleural abnormality. Normal size heart. Normal mediastinum and quyen. Normal visualized pulmonary arteries. Mildly calcified and tortuous aortic arch and descending thoracic aorta. Normal visualized thoracic spine. Normal visualized ribs, clavicles, and shoulders. There is no demonstrated abnormality of the visualized soft tissue structures of the upper abdomen. RAD/Chest 1 View (Portable) IMPRESSION: Mild asymmetric interstitial thickening in the right lower lobe possibly inflammatory. Clinical correlation recommended Electronically Signed: Fer Hewitt MD at 22:01 EST ,
[2024-11-18 21:50] LABS: Absolute Lymphocyte Count 1.48 X10^3/uL (0.83-4.51); Basophil# 0.06 X10^3/uL; Basophil% 0.4 % (0-1); Eosinophil# 0.25 X10^3/uL; Eosinophils% 1.6 % (0-5); Hematocrit 43.9 % (40-54); Hemoglobin 14.1 g/dL (13.0-16.5); Lymphocyte # 1.48 X10^3/ul (0.83-4.51); Lymphocyte % 9.5 % (19-41); Mean Corp Hgb Conc 32.1 g/dL (32-36); Mean Corpuscular Hgb 29.1 pg (27.0-32.0); Mean Corpuscular Volume 90.5 fL (80-94); Mean Platelet Vol. 9.9 fl (6.2-12.0); Monocyte# 0.72 X10^3/uL; Monocyte% 4.6 % (0-10); NRBC Flagged by Analyzer 0 % (0-5); Neutrophil % 83.3 % (47-70); Platelet Count 265 K/mm3 (150-450); RBC Distribution Width CV 14.3 % (11.6-14.6); RBC Distribution Width SD 47.7 fl (35.1-43.9); Red Blood Count 4.85 M/mm3 (4.6-6.2); White Blood Count 15.6 K/mm3 (4.4-11.0)
--- NOTE | 2024-11-18 21:55 | RAD_ITS ---
STUDY: X-RAY - LEFT ANKLE REASON FOR EXAM: Male, 69 years old. fall and pain TECHNIQUE: 3 view(s) of the ankle. COMPARISON: None. FINDINGS: Normal visualized distal tibia and fibula. Normal medial and lateral malleoli. Normal tibiotalar articulation and ankle mortise. Normal visualized talus and calcaneus. The visualized subtalar, talonavicular, calcaneocuboid and tarsal articulations are normal. Soft tissue swelling overlying the medial and lateral malleoli. RAD/Ankle min 3 Views IMPRESSION: Bimalleolar sprain. No acute fracture or dislocation Electronically Signed: Fer Hewitt MD at 22:30 EST ,
--- NOTE | 2024-11-18 21:57 | EDS_ITS ---
HPI History of Present Illness Chief Complaint: Weakness Informant: patient and family Onset/Context/Timing Onset: Today Current Severity: Mild Maximum Severity: Mild Narrative Narrative: 69-year-old male history of borderline diabetes for which he is on no medications for, hypertension and inclusion body myositis. Patient states he has not been ill recently. He went to get up out of a chair tonight. And his legs gave out and he fell injuring his left ankle. He denies any recent illness. He denies any vomiting, diarrhea or fever. He denies any cough, chest pain or shortness of breath. He denies any recent abdominal pain. States has been moving his bowels normally. No melena. No diarrhea. No dysuria. Prior similar symptoms: Yes Recent Illness/Hospitalization: No PFSH [facility] Medical History Sleep apnea treated with nocturnal BiPAP Sleep apnea HTN (hypertension) Muscle wasting Fall Home Medications ?Medication ?Instructions ?Recorded ?Last Taken ?Type bumetanide 2 mg tablet 2 mg PO DAILY 11/06/22 Unknown History cetirizine 10 mg tablet 10 mg PO DAILY 11/06/22 Unknown History ergocalciferol (vitamin D2) 1,250 50,000 unit PO QWEEK 11/06/22 Unknown History mcg (50,000 unit) capsule metoprolol tartrate 25 mg tablet 12.5 mg PO BID 11/06/22 Unknown History oxycodone-acetaminophen 5 mg-325 1 tab PO Q8H PRN Pain 11/06/22 Unknown History mg tablet potassium chloride 20 mEq 20 meq PO BID 11/06/22 Unknown History tablet,extended release sertraline 50 mg tablet 50 mg PO QHS 11/06/22 Unknown History Allergy/AdvReac Type Severity Reaction Status Date / Time No Known Allergies Allergy Verified 11/06/22 10:06 Social History Smoking Status: Never smoker ROS ROS ED ROS Narrative Follow-up plan left ankle pain. Generalized weakness. Denies recent illness. Constitutional Constitutional ED: Denies chills or fever(s) Eyes Eyes: Denies blurry vision ENT ENT ED: Denies ear pain Cardiovascular Cardiovascular: Denies chest pain Respiratory/Chest Respiratory/Chest: Denies cough or dyspnea Gastrointestinal Gastrointestinal: Denies abdominal pain Genitourinary Genitourinary ED: Denies dysuria or hematuria Musculoskeletal Musculoskeletal: Denies arthralgias Integumentary Denies abscess Neurologic Neurologic: Denies headache(s) Psychiatric Psychiatric: Denies anxiety Endocrine Endocrinology: Denies cold intolerance Hematologic/Lymphatic Hematologic/Lymphatic: Reports none Allergic/Immunologic Allergic/Immunologic ED: Denies mouth swelling, tongue swelling or urticaria EXAM Physical Exam Narrative Exam Narrative: 69-year-old male sitting upright in bed. Vital signs are stable. Temperature nine 9.4. Pulse rate 133. Says he has not taken his beta-cristian today. Pulse ox 92% on room air no hypoxia. He is in no distress. He sitting upright in bed. His daughter is at the bedside. H EENT exam pupils round react light. Moist mucous membranes. Limited poor dentition. No signs of trauma to his face or scalp. Nontender. Neck nontender. Back nontender. No bruising. Lungs clear to auscultation bilaterally. Heart tachycardic 130 no murmur. Chest wall and ribs nontender. Abdomen soft nontender. No bruising. Well-healed prior midline abdominal incision from many years ago. Moving all 4 extremities. 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 Dorsi plantarflexion intact. He has swelling in both lower extremities. He has tenderness of the left ankle but no gross bony deformity. Hips are nontender. Knees are nontender. He is able to do dorsi and plantarflexion. Neurologically he is awake. He is alert. He is answering questions following commands. Const Vital Signs: 11/18/24 20:30 11/18/24 20:33 11/18/24 22:31 Temperature 99.4 F H Temperature Source Oral Pulse Rate 133 H 120 H Respiratory Rate 20 H 16 Respiratory Effort Normal Non-Labored Blood Pressure 185/89 H 170/74 H Blood Pressure Mean 121 106 Pulse Ox 92 95 Oxygen Delivery Method Room Air Room Air Positive well nourished, well developed and obese; Negative for cachectic, contractures or unkempt General Appearance ED: well developed and NAD; Negative for unkempt, cachectic, contractures, cyanotic, diaphoretic or pallor Nutritional Appearance: obese; Negative for cachectic HEENT Reports moist mucous membranes; Denies TM's clear HEENT Narrative: Child tested positive for influenza recently in urgent care. He has a right viral conjunctivitis. Bacitracin ophthalmic ointment. Warm compresses. Tylenol and Motrin for fever. Will be given a dose of Tylenol here prior to discharge. Fluids and rest. Outpatient follow-up with his primary care physician if not improving or return if worse. Negative for trauma or tenderness Tympanic Membrane ED: Negative for TM's clear Eyes PERRL and EOMs intact bilaterally General Eye ED: Yes pale conjunctiva Neck no lymphadenopathy, supple and no JVD General: Negative for tenderness Lymph Lymphatic: Negative for other Chest Wall inspection of chest normal and palpation of chest normal Resp normal respiratory effort and clear to auscultation bilaterally Auscultation: Negative for rales, rhonchi or wheezes Cardio regular rhythm, S1 normal heart sound, S2 normal heart sound and no murmurs; Negative for regular rate Rate: tachycardic and other Other Details: Sinus tachycardia rate of 130. GI normal to inspection, nondistended, normoactive bowel sounds, non-tender, non- distended and no masses Palpation: soft; Negative for tender or guarding Back/Spine no CVA tenderness General Back: Negative for CVA tenderness Cervical Spine: Negative for cervical spine tenderness Thoracic Spine / Upper Back: Negative for thoracic spinal tenderness or paraspinal muscle tenderness Lumbar Spine / Lower Back: Negative for lumbar spinal tenderness Extremity Negative for normal to inspection Extremity Narrative: Lower extremity edema. Swelling tenderness left ankle. No gross bony deformity. Dorsi plantarflexion intact in both ankles. Knees and hips are nontender. No deformity. No shortening or rotation. General Extremety ED: Yes edema and tenderness General Extremity: edema Neuro oriented x3 and CN's II-XII intact bilaterally Sensorium / Orientation: alert; Negative for orientation impaired, lethargic or stuporous Motor Exam: general weakness Psych mental status grossly normal Appearance: Negative for unkempt Attitude: No agitated Mood & Affect: Negative for depressed or anxious Skin no rashes or lesions noted General Skin Exam: Negative for jaundice or pallor Rashes: No rashes noted Trauma: Negative for abrasion Wounds: Negative for wounds noted MDM MDM MDM Narrative Medical decision making narrative: 69-year-old male with inclusion body myositis. Fell tonight. Injured his left ankle. Complaining of generalized weakness. He is unable to get up or stand. Screening labs to be obtained. He he denies any recent illness. He denies any fever. He denies any cough. He does have a low-grade temperature 99.4. Screening labs and x-rays to be obtained. Repeat exam patient is improving at 10:40 PM. No significant new findings or injuries. He and I went over his test results along with his family member. He feels like he is too weak to ambulate. I will speak to the hospitalist about admission. He is currently receiving IV fluids. His gross urine looks clean or waiting for the UA. History & Record Review Discussion w/independent historian: Patient and Family Lab Data Attestation: I reviewed the patient's lab results. Lab results narrative: CBC shows a white count of 15.6. H&H 14 and 43. Platelets 265. Chemistries show a gap of 9. BUN 26 creatinine 0.59. Consistent with mild dehydration. Glucose 137. Chest x-ray unremarkable. COVID and flu are negative. Right ankle x-ray no fracture. Labs: Laboratory Results - last 24 hr 11/18/24 11/18/24 20:42 22:39 WBC 15.6 H RBC 4.85 Hgb 14.1 Hct 43.9 MCV 90.5 MCH 29.1 MCHC 32.1 RDW Std Deviation 47.7 H RDW Coeff of Yani 14.3 Plt Count 265 MPV 9.9 Immature Gran % (Auto) 0.600 Neut % (Auto) 83.3 H Lymph % (Auto) 9.5 L [place] % (Auto) 4.6 Eos % (Auto) 1.6 Baso % (Auto) 0.4 Absolute Neuts (auto) 13.0 H Absolute Lymphs (auto) 1.48 Nucleated RBC % 0 Sodium 137 Potassium 4.1 Chloride 102 Carbon Dioxide 26.0 Anion Gap 9 BUN 26 H Creatinine 0.59 L Est GFR (MDRD) Af Amer 174 Est GFR (MDRD) Non-Af 144 BUN/Creatinine Ratio 43.8 H Glucose 137 H Calcium 9.6 Urine Color Straw Urine Clarity Clear Urine pH 5.0 Ur Specific [place] 1.015 Urine Protein 15 H Urine Glucose (UA) Normal Urine Ketones Negative Urine Occult Blood 250 H Urine Nitrite Negative Urine Bilirubin Negative Urine Urobilinogen Normal Ur Leukocyte Esterase Negative Radiography Chest X-Ray - ED: 1 View, Read by ED Physician, Normal, Heart, Lungs, Mediastinum, Bony Structures, No Acute Disease and Chronic Changes Diagnostic Testing: Clinical Impression(s) from Imaging Studies Chest X-Ray 11/18/24 21:45 IMPRESSION: Mild asymmetric interstitial thickening in the right lower lobe possibly inflammatory. Clinical correlation recommended Electronically Signed: Fer Hewitt MD at 22:01 EST , Ankle X-Ray 11/18/24 21:55 IMPRESSION: Bimalleolar sprain. No acute fracture or dislocation Electronically Signed: Fer Hewitt MD at 22:30 EST , Left ankle x-ray, 3 views, interpreted both by myself and the radiologist shows chronic changes. No fracture or dislocation. Chest x-ray, portable, single view shows chronic changes of the lungs. Normal cardiac silhouette. No pneumonia. Rhythm Strip Rhythm Strip: Sinus Tach Rate: 129 Ectopy: None EKG Initial EKG: Attestation: I personally reviewed and interpreted this EKG as follows: Interpretation: No Acute Injury Pattern and Sinus Tachycardia Comments: Sinus tachycardia rate of 129 no acute signs of ID or ischemia. Discharge Plan Dx/Rx/DC Orders Clinical Impression: Generalized weakness, Fall, Left ankle sprain, History of muscular dystrophy, Unable to ambulate, Acute dehydration Disposition Disposition: Acute Care Hospital [facility]
[2024-11-18 22:03] LABS: Anion Gap 9 (5-15); BUN 26 mg/dL (7-18); BUN/Creat Ratio 43.8 RATIO (10-20); Calcium,Total 9.6 mg/dL (8.5-10.1); Chloride 102 mmol/L (98-107); Creatinine, Serum 0.59 mg/dL (0.70-1.30); EST Glomerular Filtration Rate 144 mL/min (>60); Est Glom Filt Rate - Afr Amer 174 mL/min (>60); Glucose 137 mg/dL (74-106); Potassium 4.1 mmol/L (3.5-5.1); Sodium Level 137 mmol/L (136-145)
--- NOTE | 2024-11-18 22:03 | EKG12_ITS ---
Test Reason : DYSRHYTHMIA Blood Pressure : */* mmHG Vent. Rate : 129 BPM Atrial Rate : 129 BPM P-R Int : 140 ms QRS Dur : 92 ms QT Int : 312 ms P-R-T Axes : 27 17 45 degrees QTcB Int : 457 ms Sinus tachycardia Possible Left atrial enlargement Borderline ECG Confirmed by MARCELO VAN, CANDELARIA ([id number]), videotape editor GUNNER WU ([id number]) on 11/24/2024 7:10:08 AM Referred By: Confirmed By: CANDELARIA ROBERTSON MD
[2024-11-18] MEDS: oxyCODONE 5 MG Tablet 10 MG PO (22:04)
[2024-11-18] MEDS: 0.9% Normal Saline (1000mL) 1,000 ML 999 ML IV (22:08)
[2024-11-18 22:31] VITALS: BP 170/74; PULSE 120; RESP 16; O2SAT 95
[2024-11-18 22:48] LABS: White Blood Cells 0 SEEN /hpf (0-5)
[2024-11-18 22:51] LABS: Color, Urine Straw (Yellow); Glucose, Dipstick Normal (Normal); Ketone-Dipstick Negative (Negative); Leukocyte Esterase-Dipstick Negative /ul (Negative); Nitrite-Dipstick Negative (Negative); Occult Blood-Urine 250 /ul (Negative); Protein-Dipstick 15 mg/dl (Negative); Specific Gravity, Urine 1.015 (1.002-1.030); Urine Bilirubin Dipstick Negative (Negative); Urine Clarity Clear (Clear); Urine Urobilinogen Normal (Normal)
--- NOTE | 2024-11-18 23:00 | PCM.HP.STD ---
HPI - General General Date of Admission: 11/19/24 Date of Service: 11/18/24 Chief Complaint: Fall, L ankle pain. HPI Narrative The patient is a 69 y/o M w/ PMHx: Former tobacco use, Morbid obesity, BERTHA on BIPAP, Muscular Dystrophy/inclusion body myositis, HTN, Allergic rhinitis, Anxiety and Depression, Borderline Diabetes mellitus type II who presents to the [facility] ED on 11/18/24 with history of attempted getting up out of chair tonight and unfortunately his legs gave out and he fell injuring his left ankle with no recent illnesses feeling well otherwise but unfortunately given his underlying history had significant issues and debility attempting to function secondary to severity of left ankle pain prompting ED evaluation. He notes at rest the left ankle is dull aching throb 2-3 out of 10 with any activity attempts or bearing weight elicits severe pain 10/10. Workup in the ED included T99.4, heart rate 133, BP 185/89, respiratory rate 20, 92% on room air with most recent repeat vital signs heart rate 120, BP 170/74, respiratory rate 16, 95% on room air, CBC with WBC 15.6, hemoglobin 14.1, platelet 265 with left shift, BMP with BUN/Lona 26/0.59, GFR 144, glucose 137, urinalysis with protein 15, occult blood 250, urine nitrite negative, leukocyte esterase negative, full panel still pending upon requested evaluation of patient, respiratory SARS COVID/influenza/RSV PCR negative, chest x-ray with mild asymmetric interstitial thickening the right lower lobe possibly inflammatory, left ankle with a bimalleolar sprain with no acute fracture or dislocation. [facility] Medical History (Updated 11/19/24 @ 00:[address] Gina Hutchison MD) Former tobacco use Borderline diabetes Inclusion body myositis Allergic rhinitis Morbid obesity History of muscular dystrophy Sleep apnea treated with nocturnal BiPAP HTN (hypertension) Home Medications ?Medication ?Instructions ?Recorded ?Last Taken ?Type bumetanide 2 mg tablet 2 mg PO DAILY 11/06/22 Unknown History cetirizine 10 mg tablet 10 mg PO DAILY 11/06/22 Unknown History ergocalciferol (vitamin D2) 1,250 50,000 unit PO QWEEK 11/06/22 Unknown History mcg (50,000 unit) capsule metoprolol tartrate 25 mg tablet 12.5 mg PO BID 11/06/22 Unknown History oxycodone-acetaminophen 5 mg-325 1 tab PO Q8H PRN Pain 11/06/22 Unknown History mg tablet potassium chloride 20 mEq 20 meq PO BID 11/06/22 Unknown History tablet,extended release sertraline 50 mg tablet 50 mg PO QHS 11/06/22 Unknown History Allergy/AdvReac Type Severity Reaction Status Date / Time No Known Allergies Allergy Verified 11/06/22 10:06 Family History (Updated 11/19/24 @ 00:[address] Gina Hutchison MD) Mother Cancer Hypertension Father Hypertension Grandfather Bleeding in brain due to brain aneurysm Surgical History (Updated 11/19/24 @ 00:[address] Gina Hutchison MD) H/O resection of liver H/O exploratory laparotomy History of dental surgery Social History (Updated 11/19/24 @ 00:[address] Gina Hutchison MD) household members: none Smoking Status: Former smoker how long ago did patient quit smoking: Quit in the 1970s, smoked ~ 3 years, couple cig-1 ppd until quit. alcohol intake: never substance use type: does not use ROS ROS Narrative Admission Review of Systems: CONSTITUTIONAL: No weight loss, fever, chills, + weakness or fatigue. HEENT: Eyes: No visual loss, blurred vision, double vision or yellow sclerae. Ears, Nose, Throat: No hearing loss, sneezing, congestion, runny nose or sore throat. SKIN: No rash or itching, lesions, wounds. CARDIOVASCULAR: No chest pain, chest pressure or chest discomfort, palpitations, edema, orthopnea, syncopal events. RESPIRATORY: No shortness of breath, cough or sputum, wheezing, hemoptysis. GASTROINTESTINAL: No anorexia, nausea, vomiting or diarrhea, abdominal pain, melena, BRBPR. GENITOURINARY: No dysuria, frequency, urgency or retention. NEUROLOGICAL: + Muscular dystrophy/inclusion body myositis with severe muscle weakness, wasting, difficulty eating forming fist with the hands. No headache, dizziness, syncope, paralysis, ataxia, numbness or tingling in the extremities, change in bowel or bladder control, seizure. MUSCULOSKELETAL: + muscle, back pain, joint pain or stiffness. HEMATOLOGIC: No anemia, bleeding or bruising. LYMPHATICS: No enlarged nodes. No history of splenectomy. PSYCHIATRIC: + History of anxiety and depression. ENDOCRINOLOGIC: No reports of sweating, cold or heat intolerance. No polyuria or polydipsia. ALLERGIES: + History of allergic rhinitis. Vital Signs Vital Signs Vital Signs: 11/18/24 20:30 11/18/24 20:33 11/18/24 22:31 Temperature 99.4 F H Temperature Source Oral Pulse Rate 133 H 120 H Respiratory Rate 20 H 16 Respiratory Effort Normal Non-Labored Blood Pressure 185/89 H 170/74 H Blood Pressure Mean 121 106 Pulse Ox 92 95 Oxygen Delivery Method Room Air Room Air Physical Exam Narrative Physical Examination: General: Awake, alert, oriented x 3 and cooperative, seated upright in the ED bed in no apparent distress, currently notes ankle primarily throbbing 2-3 out of 10 in severity.. Skin: Normal color, normal turgor, no icterus, no cyanosis soft occasional stage ecchymoses. HEENT: AT/NC, EOMI, PERRLA, mildly dry MM, no appreciated carotid bruits or JVD noted; however thickened neck makes evaluation difficult. Lungs: Diminished, greater bases, distant breath sounds likely secondary to habitus, no evidence of distress, no rales, ronchi or wheezing. Heart: Regular rate and rhythm; no gallop, rub audible. Abdomen: Soft, morbidly obese, NTTP, distant normal BS, no discerned marked distention or HSM but habitus makes evaluation difficult. Extremities: No cyanosis, no clubbing, chronic pedal to mid weeks 1-2+ edema which patient reports is chronic, discomfort to the palpation of the left ankle with decreased range of motion primarily secondary to pain elicited, increased swelling focally. Neurological: Patient awake, alert, oriented as noted, cognitive function intact; pupils equally reactive to light and accommodation, cranial nerves grossly normal, moving all 4 extremities although limited left lower extremity activity given discomfort with left ankle sprain as well as difficulty with bilateral hands specifically making fists as has severe muscle wasting evident, strength severely globally decreased Psychiatric: Affect appears fatigued otherwise normal, no acute evidence of depressive or anxiety feelings but does have underlying history. Results Lab / Micro Data 11/18/24 20:42 11/18/24 20:42 Labs: Laboratory Results - last 24 hr 11/18/24 20:42: WBC 15.6 H, RBC 4.85, Hgb 14.1, Hct 43.9, MCV 90.5, MCH 29.1, MCHC 32.1, RDW Std Deviation 47.7 H, RDW Coeff of Yani 14.3, Plt Count 265, MPV 9.9, Immature Gran % (Auto) 0.600, Neut % (Auto) 83.3 H, Lymph % (Auto) 9.5 L, [place] % (Auto) 4.6, Eos % (Auto) 1.6, Baso % (Auto) 0.4, Absolute Neuts (auto) 13.0 H, Absolute Lymphs (auto) 1.48, Nucleated RBC % 0, Sodium 137, Potassium 4.1, Chloride 102, Carbon Dioxide 26.0, Anion Gap 9, BUN 26 H, Creatinine 0.59 L, Est GFR (MDRD) Af Amer 174, Est GFR (MDRD) Non-Af 144, BUN/Creatinine Ratio 43.8 H, Glucose 137 H, Calcium 9.6 11/18/24 22:39: Urine Color Straw, Urine Clarity Clear, Urine pH 5.0, Ur Specific [place] 1.015, Urine Protein 15 H, Urine Glucose (UA) Normal, Urine Ketones Negative, Urine Occult Blood 250 H, Urine Nitrite Negative, Urine Bilirubin Negative, Urine Urobilinogen Normal, Ur Leukocyte Esterase Negative Micro: Microbiology 11/18/24 21:43 Mucosa - Nose SARS-CoV-2, Influenza & RSV (PCR) - Final Imaging Radiology Impression Chest X-Ray 11/18/24 21:45 IMPRESSION: Mild asymmetric interstitial thickening in the right lower lobe possibly inflammatory. Clinical correlation recommended Electronically Signed: Fer Hewitt MD at 22:01 EST , Ankle X-Ray 11/18/24 21:55 IMPRESSION: Bimalleolar sprain. No acute fracture or dislocation Electronically Signed: Fer Hewitt MD at 22:30 EST , Assessment & Plan Assessment/Plan (1) Left ankle sprain: PLAN: Plan The patient is a 69 y/o M w/ PMHx: Former tobacco use, Morbid obesity, BERTHA on BIPAP, Muscular Dystrophy/inclusion body myositis, HTN, Allergic rhinitis, Anxiety and Depression, Borderline Diabetes mellitus type II who presents to the [facility] ED on 11/18/24 with history of attempted getting up out of chair tonight and unfortunately his legs gave out and he fell injuring his left ankle with no recent illnesses feeling well otherwise but unfortunately given his underlying history had significant issues and debility attempting to function secondary to severity of left ankle pain prompting ED evaluation. #1. Mechanical fall, debility with significant left ankle bimalleolar sprain complicated by underlying muscular dystrophy/inclusion body myositis with adult failure to thrive: Will admit to medical surgical floor, maintain on fall precautions, creatinine kinase will be obtained, will continue boot versus Aircast depending on what fits per ED direction with weightbearing as tolerated with assistive devices with this in place specifically, will allow this to be off when in bed with lower extremity elevated with icing to the left ankle preferentially with continuous icing machine with also akash wraps for edema underneath, will have as needed pain and antiemetic regimen, PT/OT/case management consulted for discharge planning. #2. Chronic bilateral lower extremity lymphedema: Will place neck akash wraps with elevation. #3. Morbid Obesity: Weight loss and lifestyle changes encouraged. #4. Hypertension: Continue home regimen including bumetanide, metoprolol, PRN hydralazine. #5. Anxiety and depression: We will continue patient home sertraline regimen. #6. Allergic rhinitis: We will continue patient on loratadine regimen. #7. Borderline diabetes mellitus type II: Not on regimen, will maintain on ADA diet, accu checks w/ ISS. #8. Former tobacco use: Encourage continued tobacco cessation. #9. BERTHA: BiPAP nightly. #10. DVT prophylaxis: Lovenox. #11. CODE status: Patient notes his daughter Keyona is his medical decision-maker if necessary. Discussed CODE status at length including difference between FULL code, DNR-CCA and DNR-CC status. Following discussions about the differences in these status, requested Full Code status. Advanced Care Planning Face to Face Time: 16 minutes. Charges/Coding Visit Charges Inpatient E&M: 15075 Init Hosp L2 Procedures Hospitalists Procedures: 50961 Advncd Care Plan 30 Min
[2024-11-18 23:02] LABS: Bacteria RARE /hpf (None Seen); Coarse Granular Cast 0-5 SEEN /lpf (0-5 /lpf); Hyaline Cast 0-5 SEEN /lpf (0-5); Mucous, Urine 1+ /hpf (<or=2+); Red Blood Cells-Urine 25-50 SEEN /hpf (0-5); Squamous Epithelial Cells - UA 0-5 SEEN /hpf (0-5); Transitional Epithelial - Ur 0-5 SEEN /hpf (0-5)
[2024-11-18 23:17] VITALS: BP 170/74; PULSE 120; RESP 16; TEMP 37.2; O2SAT 95
[2024-11-18 23:46] LABS: CPK Total, Creatine Kinase 586 U/L (39-308)
[2024-11-18 23:52] LABS: Procalcitonin 0.19 ng/mL (0.00-0.09)
[2024-11-19] VITALS (10 sets, daily range): BP systolic 129–172; BP diastolic 66–82; PULSE 96–128; RESP 17–18; TEMP 36.8–37.6; O2SAT 92–100; BMI 45.3; BMI 46.0
[2024-11-19] MEDS: 0.9% Normal Saline (1000mL) 1,000 ML 100 ML IV (00:42)
[2024-11-19] MEDS: 0.9% Saline Lock 10 ML Syringe IV ×3 (00:42→19:50)
[2024-11-19 00:51] LABS: Bedside Glucose 111 mg/dL (74-106)
[2024-11-19] MEDS: Metoprolol Tartrate 25 MG Tablet 12.5 MG PO ×3 (01:21→22:31)
[2024-11-19] MEDS: Morphine 4 MG/ML Syringe IV (01:37)
[2024-11-19] MEDS: Menthol/Lanolin/Calamine/Znox 113 GM Tube 1 APPLIC TOPICAL ×2 (04:27→14:51)
[2024-11-19] MEDS: oxyCODONE 5 MG Tablet PO ×5 (04:33→19:49)
[2024-11-19 05:54] LABS: Absolute Lymphocyte Count 2.12 X10^3/uL (0.83-4.51); Absolute Neutrophil Count 7.7 X10^3/uL (2.0-7.7); Basophil# 0.05 X10^3/uL; Basophil% 0.5 % (0-1); Eosinophil# 0.05 X10^3/uL; Eosinophils% 0.5 % (0-5); Hematocrit 38.9 % (40-54); Hemoglobin 12.3 g/dL (13.0-16.5); Lymphocyte # 2.12 X10^3/ul (0.83-4.51); Lymphocyte % 19.6 % (19-41); Mean Corp Hgb Conc 31.6 g/dL (32-36); Mean Corpuscular Hgb 28.7 pg (27.0-32.0); Mean Corpuscular Volume 90.9 fL (80-94); Monocyte# 0.81 X10^3/uL; Monocyte% 7.5 % (0-10); NRBC Flagged by Analyzer 0 % (0-5); Neutrophil # 7.73 X10^3/uL (2.7-7.7); Neutrophil % 71.5 % (47-70); Platelet Count 234 K/mm3 (150-450); RBC Distribution Width CV 14.5 % (11.6-14.6); RBC Distribution Width SD 47.3 fl (35.1-43.9); Red Blood Count 4.28 M/mm3 (4.6-6.2); White Blood Count 10.8 K/mm3 (4.4-11.0)
[2024-11-19 06:25] LABS: Bedside Glucose 141 mg/dL (74-106)
[2024-11-19 06:30] LABS: ALB/GLOB Ratio 0.7 RATIO (0.9-2.4); AST(SGOT) 57 U/L (15-37); Alanine Aminotransfer ALT/SGPT 49 U/L (16-61); Albumin, Serum 2.8 g/dL (3.2-5.0); Alkaline Phosphatase 76 U/L (45-117); Anion Gap 6 (5-15); BUN 22 mg/dL (7-18); BUN/Creat Ratio 33.7 RATIO (10-20); Calcium,Total 8.7 mg/dL (8.5-10.1); Chloride 107 mmol/L (98-107); Creatinine, Serum 0.65 mg/dL (0.70-1.30); EST Glomerular Filtration Rate 129 mL/min (>60); Est Glom Filt Rate - Afr Amer 156 mL/min (>60); Estimated Creatinine Clearance 123.78 ml/min; Glucose 159 mg/dL (74-106); Protein, Total 6.8 g/dL (6.4-8.2); Sodium Level 138 mmol/L (136-145)
[2024-11-19] MEDS: Tamsulosin HCl 0.4 MG Capsule PO (06:51)
[2024-11-19] MEDS: Enoxaparin 40 MG/0.4 ML Syringe SC ×2 (08:53→22:33)
[2024-11-19] MEDS: Senna/Docusate Sodium 1 Tablet 2 TABLET PO ×2 (08:55→22:33)
[2024-11-19] MEDS: Potassium Chloride Oral Tablet 20 MEQ PO ×2 (08:55→22:30)
[2024-11-19] MEDS: Bumetanide 2 MG Tablet PO (08:56)
[2024-11-19] MEDS: Loratadine 10 MG Tablet PO (08:56)
[2024-11-19] MEDS: guaiFENesin 10 ML UDC (200MG/10ML) 20 ML PO ×2 (10:41→22:30)
--- NOTE | 2024-11-19 11:35 | CASEMGMT ---
Assessment- SW met with patient and his daughter Keyona. Patient was agreeable to assessment. SW also confirmed addresses and phone numbers. Living situation- Patient lives alone in a 1 story home with a ramp entrance. PCP: Dr Trent Do[facility] Specialists: None Pharmacy: [facility] Pharmacy DME:? numerous walkers, power chair, lift chair, high commode with riser, and bipap from [employer]. ADL's/IADL's: Patient manages his own medications and showers himself most of the time. His daughter assists with cooking and cleaning. Patient does not have a vehicle. He normally drives his power chair to places that are close by. His daughter used to be able to transport him in her SUV. However, she has a different car now and patient would likely not be able to get in and out of it. Past SNF/rehab: None Past HH: None LW: None POA:? None Plan: SW discussed d/c plans with patient. Patient is Medicare observation status so if he would need to go to a senior care Medicare would not pay for it. Patient used to have Medicaid, he does not know if he has Medicaid now. Patient said if he is able to stand up he could probably go home. Right now though patient said he does not think he could get out of bed. When SW asked patient about Healthcare POA papers he said he would want his daughter. SW asked if he has any other children. Patient stated he has a son who does drugs. He would not want him making any decisions. SW explained that without Healthcare POA papers should something happen to patient where he could not make medical decisions it would go to both children. Staff would have to try and reach his son. SW told patient SW would be more than happy to complete these documents with him. Patient was interested. SW then completed HCPOA papers with patient. Copies were made and given to patient along with original. A copy was also placed in patient's chart. SW also faxed a copy to patient's PCP. FELISA will follow for PT/OT evals. May need to have [employer] help patient apply for Medicaid to get to a SNF if needed or if patient possibly could qualify for [facility] Acute Rehab Unit. Rama Fritz TRANSITIONAL CARE MANAGER CLARE
--- NOTE | 2024-11-19 11:44 | PN.HOSP_ITS ---
Reason for Visit Reason for Visit: Diagnoses Sprain of unspecified ligament of left ankle, initial encounter (11/18/24) Subjective Subjective Patient is a 69-year-old gentleman with history of muscular dystrophy who presented following a fall at home developed left ankle bimalleolar sprain with significant pain admitted for subsequent inpatient management Objective Data Objective Data Vital Signs: Vital Signs Temp Pulse Resp BP Pulse Ox O2 Del Method 98.4 F 114 H 18 147/68 H 96 Room Air 11/19/24 10:37 11/19/24 10:37 11/19/24 10:37 11/19/24 10:37 11/19/24 10:37 11/19/24 10:37 Oxygen Delivery Method Room Air Weight: 141.5 kg Body Mass Index (BMI) 46.0 Intake & Output: Intake and Output for Last 24 Hours 11/17/24 11/18/24 11/19/24 23:59 23:59 23:59 Intake Total 1000 / 1000 1000 / 1000 Output Total 600 / 600 Balance 1000 / 1000 400 / 400 Lab / Micro Data 11/19/24 05:40 11/19/24 05:40 Labs: Laboratory Results - last 24 hr 11/18/24 20:42: WBC 15.6 H, RBC 4.85, Hgb 14.1, Hct 43.9, MCV 90.5, MCH 29.1, MCHC 32.1, RDW Std Deviation 47.7 H, RDW Coeff of Ayni 14.3, Plt Count 265, MPV 9.9, Immature Gran % (Auto) 0.600, Neut % (Auto) 83.3 H, Lymph % (Auto) 9.5 L, [place] % (Auto) 4.6, Eos % (Auto) 1.6, Baso % (Auto) 0.4, Absolute Neuts (auto) 13.0 H, Absolute Lymphs (auto) 1.48, Nucleated RBC % 0, Sodium 137, Potassium 4.1, Chloride 102, Carbon Dioxide 26.0, Anion Gap 9, BUN 26 H, Creatinine 0.59 L , Est GFR (MDRD) Af Amer 174, Est GFR (MDRD) Non-Af 144, BUN/Creatinine Ratio 43.8 H, Glucose 137 H, Calcium 9.6, Total Creatine Kinase 586 H, Procalcitonin 0.19 H 11/18/24 22:39: Urine Color Straw, Urine Clarity Clear, Urine pH 5.0, Ur Specific [place] 1.015, Urine Protein 15 H, Urine Glucose (UA) Normal, Urine Ketones Negative, Urine Occult Blood 250 H, Urine Nitrite Negative, Urine Bilirubin Negative, Urine Urobilinogen Normal, Ur Leukocyte Esterase Negative, Urine RBC 25-50 SEEN, Urine WBC 0 SEEN, Ur Squamous Epith Cells 0-5 SEEN, Ur Transition Epith Cell 0-5 SEEN, Urine Bacteria RARE, Hyaline Casts 0-5 SEEN, Coarse Granular Casts 0-5 SEEN, Urine Mucus 1+ 11/19/24 00:28: POC Glucose 111 H 11/19/24 05:40: WBC 10.8, RBC 4.28 L, Hgb 12.3 L, Hct 38.9 L, MCV 90.9, MCH 28.7, MCHC 31.6 L, RDW Std Deviation 47.3 H, RDW Coeff of Yani 14.5, Plt Count 234, MPV 9.0, Immature Gran % (Auto) 0.400, Neut % (Auto) 71.5 H, Lymph % (Auto) 19.6, [place] % (Auto) 7.5, Eos % (Auto) 0.5, Baso % (Auto) 0.5, Absolute Neuts (auto) 7.7, Absolute Lymphs (auto) 2.12, Nucleated RBC % 0, Sodium 138, Potassium 4.0, Chloride 107, Carbon Dioxide 25.0, Anion Gap 6, BUN 22 H, C reatinine 0.65 L, Estim Creat Clear Calc 123.78, Est GFR (MDRD) Af Amer 156, Est GFR (MDRD) Non-Af 129, BUN/Creatinine Ratio 33.7 H, Glucose 159 H, Calcium 8.7, Total Bilirubin 0.30, AST 57 H, ALT 49, Alkaline Phosphatase 76, Total Protein 6.8, Albumin 2.8 L, Globulin 4.0, Albumin/Globulin Ratio 0.7 L 11/19/24 06:05: POC Glucose 141 H Micro: Microbiology 11/18/24 21:43 Mucosa - Nose SARS-CoV-2, Influenza & RSV (PCR) - Final Radiography Diagnostic Testing: Radiology Impression Chest X-Ray 11/18/24 21:45 IMPRESSION: Mild asymmetric interstitial thickening in the right lower lobe possibly inflammatory. Clinical correlation recommended Electronically Signed: Fer Hewitt MD at 22:01 EST Reading Location ID and State: [facility] / [place] Tel [phone], Service support , Ankle X-Ray 11/18/24 21:55 IMPRESSION: Bimalleolar sprain. No acute fracture or dislocation Electronically Signed: Fer Hewitt MD at 22:30 EST , Rhythm Strip Rhythm Strip: Sinus Tach Rate: 129 Ectopy: None Physical Exam Narrative GENERAL: cooperative HEENT: Atraumatic; normocephalic EYES; Anicteric, Normal Conjunctiva NECK; supple, normal thyroid, RESPIRATORY: Diminished to auscultation CARDIOVASCULAR: Regular S1 S2, GI: soft, normoactive bowel sounds, : No Renal angle tenderness; EXTREMITIES: No edema, no clubbing, MUSCULOSKELETAL: Left ankle immobilized NEURO: Awake; no lateralizing signs. SKIN: No Rash PSYCH; Flat affect Assessment & Plan Assessment/Plan (1) Left ankle sprain: PLAN: Plan Patient is a 69-year-old gentleman with history of muscular dystrophy who presented following a fall at home developed left ankle bimalleolar sprain with significant pain admitted for subsequent inpatient management 1. Fall with subsequent left ankle pain ? Imaging studies Bimalleolar sprain. No acute fracture or dislocation The patient is a 69 y/o M w/ PMHx: Former tobacco use, Morbid obesity, BERTHA on BIPAP, Muscular Dystrophy/inclusion body myositis, HTN, Allergic rhinitis, Anxiety and Depression, Borderline Diabetes mellitus type II who presents to the [facility] ED on 11/18/24 with history of attempted getting up out of chair tonight and unfortunately his legs gave out and he fell injuring his left ankle with no recent illnesses feeling well otherwise but unfortunately given his underlying history had significant issues and debility attempting to function secondary to severity of left ankle pain prompting ED evaluation. #1. Mechanical fall, debility with significant left ankle bimalleolar sprain complicated by underlying muscular dystrophy/inclusion body myositis with adult failure to thrive: Will admit to medical surgical floor, maintain on fall precautions, creatinine kinase will be obtained, will continue boot versus Aircast depending on what fits per ED direction with weightbearing as tolerated with assistive devices with this in place specifically, will allow this to be off when in bed with lower extremity elevated with icing to the left ankle preferentially with continuous icing machine with also akash wraps for edema underneath, will have as needed pain and antiemetic regimen, PT/OT/case management consulted for discharge planning. #2. Chronic bilateral lower extremity lymphedema: Will place neck akash wraps with elevation. #3. Morbid Obesity: Weight loss and lifestyle changes encouraged. #4. Hypertension: Continue home regimen including bumetanide, metoprolol, PRN hydralazine. #5. Anxiety and depression: We will continue patient home sertraline regimen. #6. Allergic rhinitis: We will continue patient on loratadine regimen. #7. Borderline diabetes mellitus type II: Not on regimen, will maintain on ADA diet, accu checks w/ ISS. #8. Former tobacco use: Encourage continued tobacco cessation. #9. BERTHA: BiPAP nightly. #10. DVT prophylaxis: Lovenox. #11. CODE status: Patient notes his daughter Keyona is his medical decision- maker if necessary. Discussed CODE status at length including difference between FULL code, DNR-CCA and DNR-CC status. Following discussions about the differences in these status, requested Full Code status. Advanced Care Planning Face to Face Time: 16 minutes.
--- NOTE | 2024-11-19 11:44 | PCM.PN.HOSP ---
Reason for Visit Reason for Visit: Diagnoses Sprain of unspecified ligament of left ankle, initial encounter (11/18/24) Subjective Subjective Patient is a 69-year-old gentleman with history of muscular dystrophy who presented following a fall at home developed left ankle bimalleolar sprain with significant pain admitted for subsequent inpatient management Objective Data Objective Data Vital Signs: Vital Signs Temp Pulse Resp BP Pulse Ox O2 Del Method 98.4 F 114 H 18 147/68 H 96 Room Air 11/19/24 10:37 11/19/24 10:37 11/19/24 10:37 11/19/24 10:37 11/19/24 10:37 11/19/24 10:37 Oxygen Delivery Method Room Air Weight: 141.5 kg Body Mass Index (BMI) 46.0 Intake & Output: Intake and Output for Last 24 Hours 11/17/24 11/18/24 11/19/24 23:59 23:59 23:59 Intake Total 1000 / 1000 1000 / 1000 Output Total 600 / 600 Balance 1000 / 1000 400 / 400 Lab / Micro Data 11/19/24 05:40 11/19/24 05:40 Labs: Laboratory Results - last 24 hr 11/18/24 20:42: WBC 15.6 H, RBC 4.85, Hgb 14.1, Hct 43.9, MCV 90.5, MCH 29.1, MCHC 32.1, RDW Std Deviation 47.7 H, RDW Coeff of Yani 14.3, Plt Count 265, MPV 9.9, Immature Gran % (Auto) 0.600, Neut % (Auto) 83.3 H, Lymph % (Auto) 9.5 L, [place] % (Auto) 4.6, Eos % (Auto) 1.6, Baso % (Auto) 0.4, Absolute Neuts (auto) 13.0 H, Absolute Lymphs (auto) 1.48, Nucleated RBC % 0, Sodium 137, Potassium 4.1, Chloride 102, Carbon Dioxide 26.0, Anion Gap 9, BUN 26 H, Creatinine 0.59 L, Est GFR (MDRD) Af Amer 174, Est GFR (MDRD) Non-Af 144, BUN/Creatinine Ratio 43.8 H, Glucose 137 H, Calcium 9.6, Total Creatine Kinase 586 H, Procalcitonin 0.19 H 11/18/24 22:39: Urine Color Straw, Urine Clarity Clear, Urine pH 5.0, Ur Specific [place] 1.015, Urine Protein 15 H, Urine Glucose (UA) Normal, Urine Ketones Negative, Urine Occult Blood 250 H, Urine Nitrite Negative, Urine Bilirubin Negative, Urine Urobilinogen Normal, Ur Leukocyte Esterase Negative, Urine RBC 25-50 SEEN, Urine WBC 0 SEEN, Ur Squamous Epith Cells 0-5 SEEN, Ur Transition Epith Cell 0-5 SEEN, Urine Bacteria RARE, Hyaline Casts 0-5 SEEN, Coarse Granular Casts 0-5 SEEN, Urine Mucus 1+ 11/19/24 00:28: POC Glucose 111 H 11/19/24 05:40: WBC 10.8, RBC 4.28 L, Hgb 12.3 L, Hct 38.9 L, MCV 90.9, MCH 28.7, MCHC 31.6 L, RDW Std Deviation 47.3 H, RDW Coeff of Yani 14.5, Plt Count 234, MPV 9.0, Immature Gran % (Auto) 0.400, Neut % (Auto) 71.5 H, Lymph % (Auto) 19.6, [place] % (Auto) 7.5, Eos % (Auto) 0.5, Baso % (Auto) 0.5, Absolute Neuts (auto) 7.7, Absolute Lymphs (auto) 2.12, Nucleated RBC % 0, Sodium 138, Potassium 4.0, Chloride 107, Carbon Dioxide 25.0, Anion Gap 6, BUN 22 H, Creatinine 0.65 L, Estim Creat Clear Calc 123.78, Est GFR (MDRD) Af Amer 156, Est GFR (MDRD) Non-Af 129, BUN/Creatinine Ratio 33.7 H, Glucose 159 H, Calcium 8.7, Total Bilirubin 0.30, AST 57 H, ALT 49, Alkaline Phosphatase 76, Total Protein 6.8, Albumin 2.8 L, Globulin 4.0, Albumin/Globulin Ratio 0.7 L 11/19/24 06:05: POC Glucose 141 H Micro: Microbiology 11/18/24 21:43 Mucosa - Nose SARS-CoV-2, Influenza & RSV (PCR) - Final Radiography Diagnostic Testing: Radiology Impression Chest X-Ray 11/18/24 21:45 IMPRESSION: Mild asymmetric interstitial thickening in the right lower lobe possibly inflammatory. Clinical correlation recommended Electronically Signed: Fer Hewitt MD at 22:01 EST Reading Location ID and State: [address] [place] [address] Tel [phone], Service support , Ankle X-Ray 11/18/24 21:55 IMPRESSION: Bimalleolar sprain. No acute fracture or dislocation Electronically Signed: Fer Hewitt MD at 22:30 EST Reading Location ID and State: [address] [place] [address] Tel [phone], Service support , Rhythm Strip Rhythm Strip: Sinus Tach Rate: 129 Ectopy: None Physical Exam Narrative GENERAL: cooperative HEENT: Atraumatic; normocephalic EYES; Anicteric, Normal Conjunctiva NECK; supple, normal thyroid, RESPIRATORY: Diminished to auscultation CARDIOVASCULAR: Regular S1 S2, GI: soft, normoactive bowel sounds, : No Renal angle tenderness; EXTREMITIES: Bilateral stasis dermatitis MUSCULOSKELETAL: Left ankle immobilized NEURO: Awake; no lateralizing signs. SKIN: No Rash PSYCH; Flat affect Assessment & Plan Assessment/Plan (1) Left ankle sprain: PLAN: Plan Patient is a 69-year-old gentleman with history of muscular dystrophy who presented following a fall at home developed left ankle bimalleolar sprain with significant pain admitted for subsequent inpatient management 1. Fall with subsequent left ankle pain ? Imaging studies Bimalleolar sprain. No acute fracture or dislocation. Patient has had difficulty ambulating and is currently unsafe to be discharged home. Subsequently requested for PT OT eval and social worker masters to assist with discharge planning 2. Muscular Dystrophy/inclusion body myositis ? Complicating patient's care regarding his left ankle pain 3. Class III obesity with BMI of 46.1 Also complicating patient's care. Need for weight loss emphasized 4. Hypertension ? Blood pressure controlled, home medications continued with dose adjustment as needed 5. Chronic bilateral lower extremity lymphedema ? Elevation of patient's feet at night as well as Jacky wrap applied 6. Depression with anxiety ? Patient is on sertraline 7. Allergic rhinitis ? Patient is on loratadine did continue 8. Obstructive sleep apnea ? Patient is on BiPAP at night 9. Hyperglycemia ? Patient has known history of borderline diabetes currently managed with diet did not check for hemoglobin A1c. Patient placed on Accu-Cheks before meals and at bedtime with sliding scale coverage 10. DVT prophylaxis ? Subcu heparin Time spent in the patient's overall evaluation,decision-making process, review of diagnostic data, adjustment of management, discussion with other providers, nursing nursing and ancillary staff involved in patient's care documentation, 50 Minutes Charges/Coding Visit Charges Inpatient E&M: 53914 [facility] Hosp L3
[2024-11-19 12:08] LABS: Bedside Glucose 144 mg/dL (74-106)
[2024-11-19 17:39] LABS: Bedside Glucose 158 mg/dL (74-106)
[2024-11-19] MEDS: Acetaminophen 325 MG Tablet 650 MG PO (19:48)
[2024-11-19] MEDS: Sertraline 50 MG Tablet PO (22:33)
[2024-11-19 23:04] LABS: Bedside Glucose 113 mg/dL (74-106)
[2024-11-20] VITALS (7 sets, daily range): BP systolic 115–147; BP diastolic 65–80; PULSE 85–109; RESP 15–18; TEMP 35.9–37; O2SAT 91–96; BMI 46.7
[2024-11-20] MEDS: Acetaminophen 325 MG Tablet 650 MG PO ×4 (05:27→21:32)
[2024-11-20] MEDS: oxyCODONE 5 MG Tablet PO ×4 (05:27→21:32)
[2024-11-20] MEDS: Menthol/Lanolin/Calamine/Znox 113 GM Tube 1 APPLIC TOPICAL ×3 (05:27→21:37)
[2024-11-20 06:57] LABS: Absolute Lymphocyte Count 2.57 X10^3/uL (0.83-4.51); Basophil# 0.06 X10^3/uL; Basophil% 0.8 % (0-1); Eosinophil# 0.49 X10^3/uL; Eosinophils% 6.2 % (0-5); Hematocrit 36.9 % (40-54); Hemoglobin 11.8 g/dL (13.0-16.5); Lymphocyte # 2.57 X10^3/ul (0.83-4.51); Lymphocyte % 32.4 % (19-41); Mean Corpuscular Hgb 29.1 pg (27.0-32.0); Mean Corpuscular Volume 91.1 fL (80-94); Mean Platelet Vol. 9.5 fl (6.2-12.0); Monocyte# 0.75 X10^3/uL; Monocyte% 9.5 % (0-10); NRBC Flagged by Analyzer 0 % (0-5); Neutrophil # 4.03 X10^3/uL (2.7-7.7); Neutrophil % 50.7 % (47-70); Platelet Count 202 K/mm3 (150-450); RBC Distribution Width CV 14.4 % (11.6-14.6); RBC Distribution Width SD 47.8 fl (35.1-43.9); Red Blood Count 4.05 M/mm3 (4.6-6.2); White Blood Count 7.9 K/mm3 (4.4-11.0)
[2024-11-20 07:12] LABS: Bedside Glucose 113 mg/dL (74-106)
[2024-11-20 07:40] LABS: Anion Gap 6 (5-15); BUN 25 mg/dL (7-18); BUN/Creat Ratio 27.8 RATIO (10-20); Calcium,Total 8.4 mg/dL (8.5-10.1); Chloride 104 mmol/L (98-107); EST Glomerular Filtration Rate 89 mL/min (>60); Est Glom Filt Rate - Afr Amer 108 mL/min (>60); Estimated Creatinine Clearance 110.87 ml/min; Glucose 114 mg/dL (74-106); Magnesium 1.9 mg/dL (1.6-2.6); Phosphorus 3.2 mg/dL (2.5-4.9); Potassium 4.1 mmol/L (3.5-5.1); Sodium Level 135 mmol/L (136-145)
--- NOTE | 2024-11-20 07:54 | PN.HOSP_ITS ---
Reason for Visit Reason for Visit: Diagnoses Sprain of unspecified ligament of left ankle, initial encounter (11/19/24) Subjective Subjective Patient seen still requiring significant amount of pain medication and has been unable to ambulate on his own safely. Objective Data Objective Data Vital Signs: Vital Signs Temp Pulse Resp BP Pulse Ox O2 Del Method FiO2 96.6 F L 85 16 132/70 H 95 Bi-pap 21 11/20/24 04:26 11/20/24 04:26 11/20/24 04:26 11/20/24 04:26 11/20/24 04:26 11/20/24 04:36 11/20/24 03:10 Oxygen Delivery Method Bi-pap Weight: 143.4 kg Body Mass Index (BMI) 46.7 Intake & Output: Intake and Output for Last 24 Hours 11/18/24 11/19/24 11/20/24 23:59 23:59 23:59 Intake Total 1000 / 1000 2240 / 2240 Output Total 3400 / 3400 200 / 200 Balance 1000 / 1000 -1160 / -1160 -200 / -200 Lab / Micro Data 11/20/24 06:22 11/20/24 06:22 Labs: Laboratory Results - last 24 hr 11/19/24 11:39: POC Glucose 144 H 11/19/24 17:20: POC Glucose 158 H 11/19/24 22:36: POC Glucose 113 H 11/20/24 06:22: WBC 7.9, RBC 4.05 L, Hgb 11.8 L, Hct 36.9 L, MCV 91.1, MCH 29.1, MCHC 32.0, RDW Std Deviation 47.8 H, RDW Coeff of Ayni 14.4, Plt Count 202, MPV 9.5, Immature Gran % (Auto) 0.400, Neut % (Auto) 50.7, Lymph % (Auto) 32.4, [place] % (Auto) 9.5, Eos % (Auto) 6.2 H, Baso % (Auto) 0.8, Absolute Neuts (auto) 4.0, Absolute Lymphs (auto) 2.57, Nucleated RBC % 0, Sodium 135 L, Potassium 4.1, Chloride 104, Carbon Dioxide 25.0, Anion Gap 6, BUN 25 H, Creatinine 0.90, Estim Creat Clear Calc 110.87, Est GFR (MDRD) Af Amer 108, Est GFR (MDRD) Non-Af 89, B UN/Creatinine Ratio 27.8 H, Glucose 114 H, Calcium 8.4 L, Phosphorus 3.2, Magnesium 1.9 11/20/24 06:49: POC Glucose 113 H Micro: Microbiology 11/18/24 21:43 Mucosa - Nose SARS-CoV-2, Influenza & RSV (PCR) - Final Rhythm Strip Rhythm Strip: Sinus Tach Rate: 129 Ectopy: None Physical Exam Narrative GENERAL: cooperative HEENT: Atraumatic; normocephalic EYES; Anicteric, Normal Conjunctiva NECK; supple, normal thyroid, RESPIRATORY: Diminished to auscultation CARDIOVASCULAR: Regular S1 S2, GI: soft, normoactive bowel sounds, : No Renal angle tenderness; EXTREMITIES: Bilateral stasis dermatitis MUSCULOSKELETAL: Left ankle immobilized NEURO: Awake; no lateralizing signs. SKIN: No Rash PSYCH; Flat affect Assessment & Plan Assessment/Plan (1) Left ankle sprain: PLAN: Plan Patient is a 69-year-old gentleman with history of muscular dystrophy who presented following a fall at home developed left ankle bimalleolar sprain with significant pain admitted for subsequent inpatient management 1. Fall with subsequent left ankle pain ? Imaging studies Bimalleolar sprain. No acute fracture or dislocation. Patient has had difficulty ambulating and is currently unsafe to be discharged home. Subsequently requested for PT OT eval and social studies teacher to assist with discharge planning ? 11/20/2024 ; Patient seen still requiring significant amount of pain medication and has been unable to ambulate on his own safely. 2. Muscular Dystrophy/inclusion body myositis ? Complicating patient's care regarding his left ankle pain 3. Class III obesity with BMI of 46.1 Also complicating patient's care. Need for weight loss emphasized 4. Hypertension ? Blood pressure controlled, home medications continued with dose adjustment as needed 5. Chronic bilateral lower extremity lymphedema ? Elevation of patient's feet at night as well as Jacky wrap applied 6. Depression with anxiety ? Patient is on sertraline 7. Allergic rhinitis ? Patient is on loratadine did continue 8. Obstructive sleep apnea ? Patient is on BiPAP at night 9. Hyperglycemia ? Patient has known history of borderline diabetes currently managed with diet did not check for hemoglobin A1c. Patient placed on Accu-Cheks before meals and at bedtime with sliding scale coverage 10. DVT prophylaxis ? Subcu heparin Time spent in the patient's overall evaluation,decision-making process, review of diagnostic data, adjustment of management, discussion with other providers, nursing nursing and ancillary staff involved in patient's care documentation, 35 Minutes Charges/Coding Visit Charges Inpatient E&M: 45281 Subs Hosp L2
[2024-11-20] MEDS: Metoprolol Tartrate 25 MG Tablet 12.5 MG PO ×2 (09:47→21:36)
[2024-11-20] MEDS: Potassium Chloride Oral Tablet 20 MEQ PO ×2 (09:48→21:35)
[2024-11-20] MEDS: Senna/Docusate Sodium 1 Tablet 2 TABLET PO ×2 (09:48→21:34)
[2024-11-20] MEDS: Bumetanide 2 MG Tablet PO (09:48)
[2024-11-20] MEDS: Loratadine 10 MG Tablet PO (09:48)
[2024-11-20] MEDS: Enoxaparin 40 MG/0.4 ML Syringe SC ×2 (09:48→21:35)
[2024-11-20] MEDS: Tamsulosin HCl 0.4 MG Capsule PO (09:48)
--- NOTE | 2024-11-20 09:55 | CASEMGMT ---
FELISA met with patient and his daughter. FELISA told patient that patient financial services said once a claim is sent to [employer] they are not allowed to discuss it. FELISA told patient it was suggested patient follow up with [facility] and/or the [facility]. SW asked patient if he has reviewed the list. Patient said not really. Patient needed a little bit more time to review the list. SW will check back. Rama Fritz MSW CLARE
[2024-11-20 11:54] LABS: Bedside Glucose 142 mg/dL (74-106)
--- NOTE | 2024-11-20 12:12 | CASEMGMT ---
Addendum entered by Rama Fritz 11/20/24 12:28: FELISA let patient know there are no beds in TCU until middle of next week. FELISA told patient SW will need choices as soon as possible as he will be ready Saturday. Admissions people are usually not in on weekends. Patient verbalized understanding. SW will check back again. Rama SPARKS Original Note: SW checked back with patient on his SNF choices. Patient's only choice was [facility]. SW asked for other options and patient said he has not made that decision yet. SW asked Audra to review patient. Audra indicated the next bed in TCU will not be open until Saturday. FELISA will notify patient and tell him SW needs more choices. Rama SPARKS
--- NOTE | 2024-11-20 14:40 | CASEMGMT ---
SW went to patient's room and his next choice would be [facility] ([facility]) and then [facility]. FELISA asked Monika to send referrals to both facilities as both are not fast at responding. Patient will be ready Saturday. FELISA did also ask Audra in TCU to review patient in the event something changes with bed availability in TCU. Rama Fritz BARREL DRUM CUTTER [facility]
--- NOTE | 2024-11-20 14:41 | CASEMGMT ---
Addendum entered by Monika Mcguire 11/20/24 15:37: [facility] had accepted. SW updated. [facility] aware that pt will discharge on Saturday. Phone/fax obtained. Green sheet and transport form placed in chart. Monika Mcguire DC Planning Asst. Addendum entered by Monika Mcguire 11/20/24 14:44: [facility] declined d/t being over weight limit. Monika Mcguire DC Planning Asst. Original Note: SNF referral sent to [facility] and [facility]. Monika Mcguire DC Planning Asst.
--- NOTE | 2024-11-20 15:15 | CASEMGMT ---
[facility] TCU cannot take patient. Await response from [facility]. Rama Fritz DIAPER FOLDER [facility]
--- NOTE | 2024-11-20 15:28 | CASEMGMT ---
[facility] accepted patient and can take him on Saturday. SW notified patient that [facility] declined as he is over their weight limit, TCU has no beds, and [facility] accepted him. Patient was not pleased as this was his last choice, but he was agreeable. 7000 was completed in [employer] system. Plan: d/c to [facility] under skilled level of care. Rama Fritz PRIVATE DETECTIVE [facility]
--- NOTE | 2024-11-20 15:42 | PCM.TXEXTCAR ---
Diet Diet Order/Speech Therapy: 11/19/24 00:13 Diet: Consistent Carb - Calorie Controlled Food consistency:: Regular Liquid Consistency:: Regular/Thin How many daily calories?: 1800 calorie Routine Orders/Code Status Code Status: Full Code DC O2, CPAP, BIPAP needs RN Home O2 Qualification: BIPAP @HS Home O2 Discharge instructions: No Wound(s) Coccyx: Wound Type: Pressure Injury Therapies Physical Therapy: Eval and Treat Occupational Therapy: Eval and Treat Problem/Diagnosis (1) Left ankle sprain: Status: Acute Code(s): S93.402A - Sprain of unspecified ligament of left ankle, initial encounter Plan Patient is a 69-year-old gentleman with history of muscular dystrophy who presented following a fall at home developed left ankle bimalleolar sprain with significant pain admitted for subsequent inpatient management 1. Fall with subsequent left ankle pain ? Imaging studies Bimalleolar sprain. No acute fracture or dislocation. Patient has had difficulty ambulating and is currently unsafe to be discharged home. Subsequently requested for PT OT eval and social media assistant to assist with discharge planning ? 11/20/2024 ; Patient seen still requiring significant amount of pain medication and has been unable to ambulate on his own safely. 2. Muscular Dystrophy/inclusion body myositis ? Complicating patient's care regarding his left ankle pain 3. Class III obesity with BMI of 46.1 Also complicating patient's care. Need for weight loss emphasized 4. Hypertension ? Blood pressure controlled, home medications continued with dose adjustment as needed 5. Chronic bilateral lower extremity lymphedema ? Elevation of patient's feet at night as well as Jacky wrap applied 6. Depression with anxiety ? Patient is on sertraline 7. Allergic rhinitis ? Patient is on loratadine did continue 8. Obstructive sleep apnea ? Patient is on BiPAP at night 9. Hyperglycemia ? Patient has known history of borderline diabetes currently managed with diet did not check for hemoglobin A1c. Patient placed on Accu-Cheks before meals and at bedtime with sliding scale coverage 10. DVT prophylaxis ? Subcu heparin Time spent in the patient's overall evaluation,decision-making process, review of diagnostic data, adjustment of management, discussion with other providers, nursing nursing and ancillary staff involved in patient's care documentation, 35 Minutes Allergies/Procedures Done in Hospital Allergies No Known Allergies Allergy (Verified 11/06/22 10:06) Type of Care/Length of Stay Estimated LOS: Convalescent Care Less Than 30 days Type of Care Needed: Skilled Rehab Potential: Good Prognosis: Good Additional Orders/Day of Discharge Day of Discharge: 11/22/24 Discharge Plan Admission Admit Date/Time: 11/19/24 12:30 Attending Provider: Dheeraj Mccarthy Primary Care Provider: Trent Do Consulting Providers: Gina Hutchison Discharge Orders/Prescriptions Prescriptions: New acetaminophen 325 mg Tablet 650 mg PO Q4H PRN PRN (Reason: Fever, pain 1-10) Qty: 0 0RF albuterol sulfate 2.5 mg /3 mL (0.083 %) Solution For Nebulization 2.5 mg inhalation Q2H PRN PRN (Reason: Dyspnea, wheezing) Qty: 0 0RF alum-mag hydroxide-simeth [Mag-Al Plus Extra Strength] 400-400-40 mg/5 mL Suspension 30 ml PO Q6H PRN PRN (Reason: Gastric Burning) Qty: 0 0RF enoxaparin 40 mg/0.4 mL Syringe 40 mg subcut BID 30 Days Qty: 24 0RF insulin lispro [Humalog KwikPen Insulin] 100 unit/mL Insulin Pen See Protocol subcut ACHS Qty: 0 0RF Protocol: 3. Sliding Scale Insulin Med Dosing Condition: 150-189 mg/dl = 1 unit Condition: 190-229 mg/dl = 2 units Condition: 230-269 mg/dl = 3 units Condition: 270-309 mg/dl = 4 units Condition: 310-349 mg/dl = 5 units Condition: 350-399 mg/dl = 6 units Condition: 400-449 mg/dl = 7 units Condition: Greater than 449 call physician Protocol Text: - Use for Total Daily Dose of Insulin 37-55 units - Obsese, infected, or steroid patients MEDIUM DOSING ALGORITHIM melatonin 3 mg Tablet 3 mg PO QHS PRN PRN (Reason: Insomnia) Qty: 0 0RF oxycodone 5 mg Tablet 5 mg PO Q4H PRN PRN (Reason: Pain Score 4-10) 3 Days Qty: 10 0RF sennosides-docusate sodium [Stimulant Laxative Plus] 8.6-50 mg Tablet 2 tab PO BID Qty: 0 0RF tamsulosin 0.4 mg Capsule 0.4 mg PO DAILY Qty: 0 0RF Continued bumetanide 2 mg Tablet 2 mg PO DAILY Patient Comments: PER PATIENT I TAKE IT OFF AND ON cetirizine 10 mg Tablet 10 mg PO DAILY ergocalciferol (vitamin D2) 1,250 mcg (50,000 unit) capsule 50,000 unit PO QWEEK sertraline 50 mg Tablet 50 mg PO QHS metoprolol tartrate 25 mg Tablet 12.5 mg PO BID potassium chloride 20 mEq Tablet Extended Release 20 meq PO BID methocarbamol 500 mg tablet 500 mg PO 3XD Discontinued oxycodone-acetaminophen 5-325 mg Tablet 1 tab PO Q8H PRN (Reason: Pain) cyclobenzaprine 10 mg tablet 10 mg PO 3XD Referrals / Follow Up: Trent Do DO [Primary Care Provider] - Within 2 Weeks Disposition Disposition (needs filled in before D/C Order can be placed): Long-Term Facility
--- NOTE | 2024-11-20 16:06 | CASEMGMT ---
FELISA sent orders to [facility] via [employer]. FELISA completed a 7000 in [employer] system. Plan: d/c to [facility] under skilled level of care on a convalescent stay. Physicians will transport patient via cot. Rama SPARKS
[2024-11-20 17:17] LABS: Bedside Glucose 146 mg/dL (74-106)
[2024-11-20] MEDS: Morphine 4 MG/ML Syringe IV (18:54)
[2024-11-20] MEDS: 0.9% Saline Lock 10 ML Syringe IV (18:54)
[2024-11-20] MEDS: guaiFENesin 10 ML UDC (200MG/10ML) 20 ML PO (21:32)
[2024-11-20] MEDS: Sertraline 50 MG Tablet PO (21:36)
[2024-11-21] VITALS (13 sets, daily range): BP systolic 121–174; BP diastolic 50–82; PULSE 96–120; RESP 18–22; TEMP 36.4–37.2; O2SAT 92–98; BMI 45.4
[2024-11-21 00:14] LABS: Bedside Glucose 135 mg/dL (74-106)
[2024-11-21] MEDS: Morphine 4 MG/ML Syringe IV ×2 (03:34→15:22)
[2024-11-21] MEDS: 0.9% Saline Lock 10 ML Syringe IV ×3 (03:35→15:22)
[2024-11-21 05:03] LABS: Absolute Lymphocyte Count 3.19 X10^3/uL (0.83-4.51); Absolute Neutrophil Count 4.6 X10^3/uL (2.0-7.7); Basophil# 0.08 X10^3/uL; Basophil% 0.9 % (0-1); Eosinophil# 0.71 X10^3/uL; Eosinophils% 7.7 % (0-5); Hematocrit 35.8 % (40-54); Hemoglobin 11.5 g/dL (13.0-16.5); Lymphocyte # 3.19 X10^3/ul (0.83-4.51); Lymphocyte % 34.5 % (19-41); Mean Corp Hgb Conc 32.1 g/dL (32-36); Mean Corpuscular Hgb 29.2 pg (27.0-32.0); Mean Corpuscular Volume 90.9 fL (80-94); Mean Platelet Vol. 9.7 fl (6.2-12.0); Monocyte# 0.67 X10^3/uL; Monocyte% 7.2 % (0-10); NRBC Flagged by Analyzer 0 % (0-5); Neutrophil # 4.56 X10^3/uL (2.7-7.7); Neutrophil % 49.3 % (47-70); Platelet Count 223 K/mm3 (150-450); RBC Distribution Width CV 14.3 % (11.6-14.6); RBC Distribution Width SD 47.7 fl (35.1-43.9); Red Blood Count 3.94 M/mm3 (4.6-6.2); White Blood Count 9.3 K/mm3 (4.4-11.0)
[2024-11-21 05:35] LABS: Anion Gap 7 (5-15); BUN 28 mg/dL (7-18); BUN/Creat Ratio 33.9 RATIO (10-20); Calcium,Total 8.7 mg/dL (8.5-10.1); Chloride 102 mmol/L (98-107); Creatinine, Serum 0.83 mg/dL (0.70-1.30); EST Glomerular Filtration Rate 98 mL/min (>60); Est Glom Filt Rate - Afr Amer 119 mL/min (>60); Estimated Creatinine Clearance 120.22 ml/min; Glucose 153 mg/dL (74-106); Potassium 3.8 mmol/L (3.5-5.1); Sodium Level 135 mmol/L (136-145)
[2024-11-21 07:14] LABS: Bedside Glucose 111 mg/dL (74-106)
--- NOTE | 2024-11-21 08:23 | PN.HOSP_ITS ---
Reason for Visit Reason for Visit: Diagnoses Sprain of unspecified ligament of left ankle, initial encounter (11/19/24) Subjective Subjective Patient seen complaining of some discomfort in the ankle. Objective Data Objective Data Vital Signs: Vital Signs Temp Pulse Resp BP Pulse Ox O2 Del Method FiO2 97.6 F L 96 18 132/73 H 98 Room Air 21 11/21/24 02:30 11/21/24 02:30 11/21/24 02:30 11/21/24 02:30 11/21/24 02:30 11/21/24 02:30 11/21/24 01:25 Oxygen Delivery Method Room Air Weight: 139.6 kg Body Mass Index (BMI) 45.4 Intake & Output: Intake and Output for Last 24 Hours 11/19/24 11/20/24 11/21/24 23:59 23:59 23:59 Intake Total 2240 / 2240 400 / 880 480 / 480 Output Total 3400 / 3400 4050 / 4500 1000 / 1000 Balance -1160 / -1160 -3650 / -3620 -520 / -520 Lab / Micro Data 11/21/24 04:38 11/21/24 04:38 Labs: Laboratory Results - last 24 hr 11/20/24 11:37: POC Glucose 142 H 11/20/24 15:23: POC Glucose 146 H 11/20/24 21:43: POC Glucose 135 H 11/21/24 04:38: WBC 9.3, RBC 3.94 L, Hgb 11.5 L, Hct 35.8 L, MCV 90.9, MCH 29.2, MCHC 32.1, RDW Std Deviation 47.7 H, RDW Coeff of Yani 14.3, Plt Count 223, MPV 9.7, Immature Gran % (Auto) 0.400, Neut % (Auto) 49.3, Lymph % (Auto) 34.5, [place] % (Auto) 7.2, Eos % (Auto) 7.7 H, Baso % (Auto) 0.9, Absolute Neuts (auto) 4.6, Absolute Lymphs (auto) 3.19, Nucleated RBC % 0, Sodium 135 L, Potassium 3.8, Chloride 102, Carbon Dioxide 26.0, Anion Gap 7, BUN 28 H, Creatinine 0.83, Estim Creat Clear Calc 120.22, Est GFR (MDRD) Af Amer 119, Est GFR (MDRD) Non-Af 98, B UN/Creatinine Ratio 33.9 H, Glucose 153 H, Calcium 8.7 11/21/24 06:55: POC Glucose 111 H Micro: Microbiology 11/18/24 21:43 Mucosa - Nose SARS-CoV-2, Influenza & RSV (PCR) - Final Rhythm Strip Rhythm Strip: Sinus Tach Rate: 129 Ectopy: None Physical Exam Narrative GENERAL: cooperative HEENT: Atraumatic; normocephalic EYES; Anicteric, Normal Conjunctiva NECK; supple, normal thyroid, RESPIRATORY: Diminished to auscultation CARDIOVASCULAR: Regular S1 S2, GI: soft, normoactive bowel sounds, : No Renal angle tenderness; EXTREMITIES: Bilateral stasis dermatitis MUSCULOSKELETAL: Left ankle immobilized NEURO: Awake; no lateralizing signs. SKIN: No Rash PSYCH; Flat affect Assessment & Plan Assessment/Plan (1) Left ankle sprain: PLAN: Plan Patient is a 69-year-old gentleman with history of muscular dystrophy who presented following a fall at home developed left ankle bimalleolar sprain with significant pain admitted for subsequent inpatient management 1. Fall with subsequent left ankle pain ? Imaging studies Bimalleolar sprain. No acute fracture or dislocation. Patient has had difficulty ambulating and is currently unsafe to be discharged home. Subsequently requested for PT OT eval and social work specialist to assist with discharge planning ? 11/20/2024 ; Patient seen still requiring significant amount of pain medication and has been unable to ambulate on his own safely ? 11/21/2024 Patient continues to experience some pain. Will continue with current pain regimen 2. Muscular Dystrophy/inclusion body myositis ? Complicating patient's care regarding his left ankle pain 3. Class III obesity with BMI of 46.1 Also complicating patient's care. Need for weight loss emphasized 4. Hypertension ? Blood pressure controlled, home medications continued with dose adjustment as needed 5. Chronic bilateral lower extremity lymphedema ? Elevation of patient's feet at night as well as Jacky wrap applied 6. Depression with anxiety ? Patient is on sertraline 7. Allergic rhinitis ? Patient is on loratadine did continue 8. Obstructive sleep apnea ? Patient is on BiPAP at night 9. Hyperglycemia ? Patient has known history of borderline diabetes currently managed with diet did not check for hemoglobin A1c. Patient placed on Accu-Cheks before meals and at bedtime with sliding scale coverage 10. DVT prophylaxis ? Subcu heparin Time spent in the patient's overall evaluation,decision-making process, review of diagnostic data, adjustment of management, discussion with other providers, nursing nursing and ancillary staff involved in patient's care documentation, 35 Minutes Charges/Coding Visit Charges Inpatient E&M: 30217 Subs Hosp L2
[2024-11-21] MEDS: oxyCODONE 5 MG Tablet PO ×4 (09:33→21:34)
[2024-11-21] MEDS: Acetaminophen 325 MG Tablet 650 MG PO ×4 (09:34→21:34)
[2024-11-21] MEDS: Loratadine 10 MG Tablet PO (09:45)
[2024-11-21] MEDS: Senna/Docusate Sodium 1 Tablet 2 TABLET PO ×2 (09:45→20:54)
[2024-11-21] MEDS: Enoxaparin 40 MG/0.4 ML Syringe SC ×2 (09:45→20:53)
[2024-11-21] MEDS: Bumetanide 2 MG Tablet PO (09:45)
[2024-11-21] MEDS: Potassium Chloride Oral Tablet 20 MEQ PO ×2 (09:46→20:54)
[2024-11-21] MEDS: Tamsulosin HCl 0.4 MG Capsule PO (09:46)
[2024-11-21] MEDS: Metoprolol Tartrate 25 MG Tablet 12.5 MG PO ×2 (09:47→20:54)
[2024-11-21 13:05] LABS: Bedside Glucose 137 mg/dL (74-106)
[2024-11-21] MEDS: guaiFENesin 10 ML UDC (200MG/10ML) 20 ML PO ×2 (13:42→20:53)
[2024-11-21] MEDS: Menthol/Lanolin/Calamine/Znox 113 GM Tube 1 APPLIC TOPICAL ×2 (13:43→20:58)
[2024-11-21] MEDS: hydrALAZINE 20 MG/ML Vial 10 MG IV (13:56)
[2024-11-21 17:29] LABS: Bedside Glucose 131 mg/dL (74-106)
[2024-11-21] MEDS: Sertraline 50 MG Tablet PO (20:54)
[2024-11-21 21:34] LABS: Bedside Glucose 112 mg/dL (74-106)
[2024-11-22] MEDS: Acetaminophen 325 MG Tablet 650 MG PO ×2 (02:48→08:50)
[2024-11-22] MEDS: oxyCODONE 5 MG Tablet PO ×2 (02:49→08:50)
[2024-11-22 03:00] VITALS: BP 147/80; PULSE 96; RESP 18; TEMP 36.7; O2SAT 96
[2024-11-22 03:14] VITALS: BMI 46.0
[2024-11-22 06:47] LABS: Bedside Glucose 118 mg/dL (74-106)
[2024-11-22 07:21] LABS: Absolute Lymphocyte Count 3.65 X10^3/uL (0.83-4.51); Absolute Neutrophil Count 4.6 X10^3/uL (2.0-7.7); Basophil# 0.07 X10^3/uL; Basophil% 0.7 % (0-1); Eosinophil# 0.51 X10^3/uL; Eosinophils% 5.3 % (0-5); Hematocrit 36.6 % (40-54); Hemoglobin 11.7 g/dL (13.0-16.5); Lymphocyte # 3.65 X10^3/ul (0.83-4.51); Lymphocyte % 37.8 % (19-41); Mean Corpuscular Volume 90.8 fL (80-94); Mean Platelet Vol. 9.2 fl (6.2-12.0); Monocyte# 0.84 X10^3/uL; Monocyte% 8.7 % (0-10); NRBC Flagged by Analyzer 0 % (0-5); Neutrophil # 4.56 X10^3/uL (2.7-7.7); Neutrophil % 47.2 % (47-70); Platelet Count 222 K/mm3 (150-450); RBC Distribution Width CV 14.2 % (11.6-14.6); RBC Distribution Width SD 46.9 fl (35.1-43.9); Red Blood Count 4.03 M/mm3 (4.6-6.2); White Blood Count 9.7 K/mm3 (4.4-11.0)
--- NOTE | 2024-11-22 07:25 | TREXTCAR_ITS ---
Diet Diet Order/Speech Therapy: 11/19/24 00:13 Diet: Consistent Carb - Calorie Controlled Food consistency:: Regular Liquid Consistency:: Regular/Thin How many daily calories?: 1800 calorie Routine Orders/Code Status Code Status: Full Code DC O2, CPAP, BIPAP needs Home O2 Discharge instructions: No Wound(s) Coccyx: Wound Type: Pressure Injury Therapies Physical Therapy: Eval and Treat Occupational Therapy: Eval and Treat Problem/Diagnosis (1) Left ankle sprain: Status: Acute Code(s): S93.402A - Sprain of unspecified ligament of left ankle, initial encounter Plan Patient is a 69-year-old gentleman with history of muscular dystrophy who presented following a fall at home developed left ankle bimalleolar sprain with significant pain admitted for subsequent inpatient management 1. Fall with subsequent left ankle pain ? Imaging studies Bimalleolar sprain. No acute fracture or dislocation. Patient has had difficulty ambulating and is currently unsafe to be discharged home. Subsequently requested for PT OT eval and social work lecturer to assist with discharge planning ? 11/20/2024 ; Patient seen still requiring significant amount of pain medication and has been unable to ambulate on his own safely ? 11/21/2024 Patient continues to experience some pain. Will continue with current pain regimen 2. Muscular Dystrophy/inclusion body myositis ? Complicating patient's care regarding his left ankle pain 3. Class III obesity with BMI of 46.1 Also complicating patient's care. Need for weight loss emphasized 4. Hypertension ? Blood pressure controlled, home medications continued with dose adjustment as needed 5. Chronic bilateral lower extremity lymphedema ? Elevation of patient's feet at night as well as Jacky wrap applied 6. Depression with anxiety ? Patient is on sertraline 7. Allergic rhinitis ? Patient is on loratadine did continue 8. Obstructive sleep apnea ? Patient is on BiPAP at night 9. Hyperglycemia ? Patient has known history of borderline diabetes currently managed with diet did not check for hemoglobin A1c. Patient placed on Accu-Cheks before meals and at bedtime with sliding scale coverage 10. DVT prophylaxis ? Subcu heparin Time spent in the patient's overall evaluation,decision-making process, review of diagnostic data, adjustment of management, discussion with other providers, nursing nursing and ancillary staff involved in patient's care documentation, 35 Minutes Allergies/Procedures Done in Hospital Allergies No Known Allergies Allergy (Verified 11/06/22 10:06) Type of Care/Length of Stay Estimated LOS: Convalescent Care Less Than 30 days Type of Care Needed: Skilled Rehab Potential: Good Prognosis: Good Additional Orders/Day of Discharge Day of Discharge: 11/22/24 Dietary and Speech Recommendations Dietitian Recommendations/Changes: Continue 1800CCD diet to manage blood sugars. Discharge Plan Admission Admit Date/Time: 11/19/24 12:30 Attending Provider: Dheeraj Mccarthy Primary Care Provider: Trent Do Consulting Providers: Gina Hutchison Discharge Orders/Prescriptions Prescriptions: New acetaminophen 325 mg Tablet 650 mg PO Q4H PRN PRN (Reason: Fever, pain 1-08/06) Qty: 0 0RF albuterol sulfate 2.5 mg /3 mL (0.083 %) Solution For Nebulization 2.5 mg inhalation Q2H PRN PRN (Reason: Dyspnea, wheezing) Qty: 0 0RF alum-mag hydroxide-simeth [Mag-Al Plus Extra Strength] 400-400-40 mg/5 mL Suspension 30 ml PO Q6H PRN PRN (Reason: Gastric Burning) Qty: 0 0RF enoxaparin 40 mg/0.4 mL Syringe 40 mg subcut BID 30 Days Qty: 24 0RF insulin lispro [Humalog KwikPen Insulin] 100 unit/mL Insulin Pen See Protocol subcut ACHS Qty: 0 0RF Protocol: 3. Sliding Scale Insulin Med Dosing Condition: 150-189 mg/dl = 1 unit Condition: 190-229 mg/dl = 2 units Condition: 230-269 mg/dl = 3 units Condition: 270-309 mg/dl = 4 units Condition: 310-349 mg/dl = 5 units Condition: 350-399 mg/dl = 6 units Condition: 400-449 mg/dl = 7 units Condition: Greater than 449 call physician Protocol Text: - Use for Total Daily Dose of Insulin 37-55 units - Obsese, infected, or steroid patients MEDIUM DOSING ALGORITHIM melatonin 3 mg Tablet 3 mg PO QHS PRN PRN (Reason: Insomnia) Qty: 0 0RF oxycodone 5 mg Tablet 5 mg PO Q4H PRN PRN (Reason: Pain Score 4-10) 3 Days Qty: 10 0RF sennosides-docusate sodium [Stimulant Laxative Plus] 8.6-50 mg Tablet 2 tab PO BID Qty: 0 0RF tamsulosin 0.4 mg Capsule 0.4 mg PO DAILY Qty: 0 0RF Continued bumetanide 2 mg Tablet 2 mg PO DAILY Patient Comments: PER PATIENT I TAKE IT OFF AND ON cetirizine 10 mg Tablet 10 mg PO DAILY ergocalciferol (vitamin D2) 1,250 mcg (50,000 unit) capsule 50,000 unit PO QWEEK sertraline 50 mg Tablet 50 mg PO QHS metoprolol tartrate 25 mg Tablet 12.5 mg PO BID potassium chloride 20 mEq Tablet Extended Release 20 meq PO BID methocarbamol 500 mg tablet 500 mg PO 3XD Discontinued oxycodone-acetaminophen 5-325 mg Tablet 1 tab PO Q8H PRN (Reason: Pain) cyclobenzaprine 10 mg tablet 10 mg PO 3XD Referrals / Follow Up: Trent Do DO [Primary Care Provider] - Within 2 Weeks Disposition Disposition (needs filled in before D/C Order can be placed): [facility]mediate Facility
[2024-11-22 07:50] LABS: Anion Gap 6 (5-15); BUN 21 mg/dL (7-18); BUN/Creat Ratio 35.7 RATIO (10-20); Calcium,Total 8.9 mg/dL (8.5-10.1); Chloride 103 mmol/L (98-107); Creatinine, Serum 0.59 mg/dL (0.70-1.30); EST Glomerular Filtration Rate 145 mL/min (>60); Est Glom Filt Rate - Afr Amer 176 mL/min (>60); Estimated Creatinine Clearance 123.73 ml/min; Glucose 115 mg/dL (74-106); Potassium 3.9 mmol/L (3.5-5.1); Sodium Level 135 mmol/L (136-145)
--- NOTE | 2024-11-22 08:43 | DS.PCM_ITS ---
Providers Date of Admission: 11/19/24 Date of Discharge: 11/22/24 Primary Care Physician: Dr. Trent Do, Reason For Visit: FALL ANKLE SPRAIN, ADULT FTT Diagnosis Discharge Diagnosis (1) Left ankle sprain: Status: Acute Code(s): S93.402A - Sprain of unspecified ligament of left ankle, initial encounter Plan Patient is a 69-year-old gentleman with history of muscular dystrophy who presented following a fall at home developed left ankle bimalleolar sprain with significant pain admitted for subsequent inpatient management 1. Fall with subsequent left ankle pain ? Imaging studies Bimalleolar sprain. No acute fracture or dislocation. Patient has had difficulty ambulating and is currently unsafe to be discharged home. Subsequently requested for PT OT eval and outreach and education social worker to assist with discharge planning ? 11/20/2024 ; Patient seen still requiring significant amount of pain medication and has been unable to ambulate on his own safely ? 11/21/2024 Patient continues to experience some pain. Will continue with current pain regimen 2. Muscular Dystrophy/inclusion body myositis ? Complicating patient's care regarding his left ankle pain 3. Class III obesity with BMI of 46.1 Also complicating patient's care. Need for weight loss emphasized 4. Hypertension ? Blood pressure controlled, home medications continued with dose adjustment as needed 5. Chronic bilateral lower extremity lymphedema ? Elevation of patient's feet at night as well as Jacky wrap applied 6. Depression with anxiety ? Patient is on sertraline 7. Allergic rhinitis ? Patient is on loratadine did continue 8. Obstructive sleep apnea ? Patient is on BiPAP at night 9. Hyperglycemia ? Patient has known history of borderline diabetes currently managed with diet did not check for hemoglobin A1c. Patient placed on Accu-Cheks before meals and at bedtime with sliding scale coverage 10. DVT prophylaxis ? Subcu heparin Time spent in the patient's overall evaluation,decision-making process, review of diagnostic data, adjustment of management, discussion with other providers, nursing nursing and ancillary staff involved in patient's care documentation, 35 Minutes Medications at Discharge Home Medications bumetanide 2 mg tablet 2 mg PO DAILY water pill 11/06/22 cetirizine 10 mg tablet 10 mg PO DAILY allergies 11/06/22 ergocalciferol (vitamin D2) 1,250 mcg (50,000 unit) capsule 50,000 unit PO QWEEK supplement 11/06/22 metoprolol tartrate 25 mg tablet 12.5 mg PO BID heart 11/06/22 potassium chloride 20 mEq tablet,extended release 20 meq PO BID supplement 11/06/22 sertraline 50 mg tablet 50 mg PO QHS depression 11/06/22 acetaminophen 325 mg tablet 650 mg (2 x 325 mg) PO Q4H PRN PRN Fever, pain 1- 08/06 #0 tabs 11/20/24 albuterol sulfate 2.5 mg/3 mL (0.083 %) solution for nebulization 2.5 mg (3 mL) inhalation Q2H PRN PRN Dyspnea, wheezing #0 mL 11/20/24 aluminum-mag hydroxide-simethicone 400 mg-400 mg-40 mg/5 mL oral susp (Mag-Al Plus Extra Strength) 30 ml PO Q6H PRN PRN Gastric Burning #0 mL 11/20/24 enoxaparin 40 mg/0.4 mL subcutaneous syringe 40 mg (0.4 mL) subcut BID 30 days #24 mL 11/20/24 insulin lispro 100 unit/mL subcutaneous pen (Humalog KwikPen (U-100) Insulin) See Protocol subcut ACHS #0 mL 11/20/24 melatonin 3 mg tablet 3 mg PO QHS PRN PRN Insomnia #0 tabs 11/20/24 methocarbamol 500 mg tablet 500 mg PO 3XD muscle relaxer 11/20/24 oxycodone 5 mg tablet 5 mg PO Q4H PRN PRN Pain Score 4-10 3 days #10 tabs 11/20/24 sennosides 8.6 mg-docusate sodium 50 mg tablet (Stimulant Laxative Plus) 2 tab PO BID #0 tabs 11/20/24 tamsulosin 0.4 mg capsule 0.4 mg PO DAILY #0 caps 11/20/24 Physical Exam Narrative GENERAL: cooperative HEENT: Atraumatic; normocephalic EYES; Anicteric, Normal Conjunctiva NECK; supple, normal thyroid, RESPIRATORY: Diminished to auscultation CARDIOVASCULAR: Regular S1 S2, GI: soft, normoactive bowel sounds, : No Renal angle tenderness; EXTREMITIES: Bilateral stasis dermatitis MUSCULOSKELETAL: Left ankle immobilized NEURO: Awake; no lateralizing signs. SKIN: No Rash PSYCH; Flat affect Weight / BMI Weight Weight: 141.4 kg Body Mass Index (BMI) 46.0 ABG / Lab / Microbiology Data 11/22/24 06:50 11/22/24 06:50 Laboratory: Laboratory Results - last 24 hr 11/21/24 11:54: POC Glucose 137 H 11/21/24 16:47: POC Glucose 131 H 11/21/24 20:48: POC Glucose 112 H 11/22/24 06:14: POC Glucose 118 H 11/22/24 06:50: WBC 9.7, RBC 4.03 L, Hgb 11.7 L, Hct 36.6 L, MCV 90.8, MCH 29.0, MCHC 32.0, RDW Std Deviation 46.9 H, RDW Coeff of Yani 14.2, Plt Count 222, MPV 9.2, Immature Gran % (Auto) 0.300, Neut % (Auto) 47.2, Lymph % (Auto) 37.8, [place] % (Auto) 8.7, Eos % (Auto) 5.3 H, Baso % (Auto) 0.7, Absolute Neuts (auto) 4.6, Absolute Lymphs (auto) 3.65, Nucleated RBC % 0, Sodium 135 L, Potassium 3.9, Chloride 103, Carbon Dioxide 26.0, Anion Gap 6, BUN 21 H, Creatinine 0.59 L, Estim Creat Clear Calc 123.73, Est GFR (MDRD) Af Amer 176, Est GFR (MDRD) Non-Af 145, BUN/Creatinine Ratio 35.7 H, Glucose 115 H, Calcium 8.9 Microbiology: Microbiology 11/18/24 21:43 Mucosa - Nose SARS-CoV-2, Influenza & RSV (PCR) - Final D/C Instructions Discharge Diet: 1800 Calorie Control Diet Discharge Activity: Return to Normal Activity Call your doctor if you observe: Fever of 101 or Higher, Shortness of breath, Fainting spells and Chest pain DC O2, CPAP, BIPAP Needs PSN CPAP & BiPAP: BiPAP & CPAP Settings per PSN Mode BiPAP 11/22/24 01:09 Bipap Delivery Device Face Mask 11/22/24 05:03 BiPAP Inspiratory Pressure 18 11/22/24 05:03 BiPAP Expiratory Pressure 11 11/22/24 05:03 Fraction of Inspired Oxygen ( 21 11/21/24 01:25 FIO2) Total Flow Rate 0 11/22/24 05:03 Home O2 Discharge instructions: No Meaningful Use Info Meaningful Use Meaningful Use Diagnoses (Choose all that apply): None applicable Ischemic Stroke Statin Dosing Therapy Reference: STATIN DOSE THERAPY REFERENCE: * Patients > 75 years receive moderate or high dose statin therapy. * Patients 75 years or YOUNGER should receive HIGH intensity statin dose unless contraindicated. You will be required to document reason for non-treatment if statin daily dose does not meet guidelines. HIGH DOSE STATIN THERAPY DAILY Atorvastatin > than or = to 40 mg Rosuvastatin > than or = to 20 mg Amlodipine + Atorvastatin > than or = to 2.5/40 mg Ezetimibe + Simvastatin 10/80 mg Simvastatin 80mg Discharge Plan Admission Admit Date/Time: 11/19/24 12:30 Attending Provider: Dheeraj Mccarthy Primary Care Provider: Trent Do Consulting Providers: Gina Hutchison Discharge Orders/Prescriptions Prescriptions: New acetaminophen 325 mg Tablet 650 mg PO Q4H PRN PRN (Reason: Fever, pain 1-08/06) Qty: 0 0RF albuterol sulfate 2.5 mg /3 mL (0.083 %) Solution For Nebulization 2.5 mg inhalation Q2H PRN PRN (Reason: Dyspnea, wheezing) Qty: 0 0RF alum-mag hydroxide-simeth [Mag-Al Plus Extra Strength] 400-400-40 mg/5 mL Suspension 30 ml PO Q6H PRN PRN (Reason: Gastric Burning) Qty: 0 0RF enoxaparin 40 mg/0.4 mL Syringe 40 mg subcut BID 30 Days Qty: 24 0RF insulin lispro [Humalog KwikPen Insulin] 100 unit/mL Insulin Pen See Protocol subcut ACHS Qty: 0 0RF Protocol: 3. Sliding Scale Insulin Med Dosing Condition: 150-189 mg/dl = 1 unit Condition: 190-229 mg/dl = 2 units Condition: 230-269 mg/dl = 3 units Condition: 270-309 mg/dl = 4 units Condition: 310-349 mg/dl = 5 units Condition: 350-399 mg/dl = 6 units Condition: 400-449 mg/dl = 7 units Condition: Greater than 449 call physician Protocol Text: - Use for Total Daily Dose of Insulin 37-55 units - Obsese, infected, or steroid patients MEDIUM DOSING ALGORITHIM melatonin 3 mg Tablet 3 mg PO QHS PRN PRN (Reason: Insomnia) Qty: 0 0RF oxycodone 5 mg Tablet 5 mg PO Q4H PRN PRN (Reason: Pain Score 4-10) 3 Days Qty: 10 0RF sennosides-docusate sodium [Stimulant Laxative Plus] 8.6-50 mg Tablet 2 tab PO BID Qty: 0 0RF tamsulosin 0.4 mg Capsule 0.4 mg PO DAILY Qty: 0 0RF Continued bumetanide 2 mg Tablet 2 mg PO DAILY Patient Comments: PER PATIENT I TAKE IT OFF AND ON cetirizine 10 mg Tablet 10 mg PO DAILY ergocalciferol (vitamin D2) 1,250 mcg (50,000 unit) capsule 50,000 unit PO QWEEK sertraline 50 mg Tablet 50 mg PO QHS metoprolol tartrate 25 mg Tablet 12.5 mg PO BID potassium chloride 20 mEq Tablet Extended Release 20 meq PO BID methocarbamol 500 mg tablet 500 mg PO 3XD Discontinued oxycodone-acetaminophen 5-325 mg Tablet 1 tab PO Q8H PRN (Reason: Pain) cyclobenzaprine 10 mg tablet 10 mg PO 3XD Referrals / Follow Up: Trent Do DO [Primary Care Provider] - Within 2 Weeks Disposition Disposition (needs filled in before D/C Order can be placed): [facility] Charges/Coding Visit Charges Inpatient E&M: 11736 Disch Hosp >30min
[2024-11-22 08:59] VITALS: BP 171/78; PULSE 109; RESP 18; TEMP 37.1; O2SAT 96
[2024-11-22 09:05] VITALS: BP 171/78; PULSE 109
[2024-11-22] MEDS: Metoprolol Tartrate 25 MG Tablet 12.5 MG PO (09:05)
[2024-11-22] MEDS: Loratadine 10 MG Tablet PO (09:06)
[2024-11-22] MEDS: Bumetanide 2 MG Tablet PO (09:06)
[2024-11-22] MEDS: Tamsulosin HCl 0.4 MG Capsule PO (09:06)
[2024-11-22] MEDS: Potassium Chloride Oral Tablet 20 MEQ PO (09:06)
[2024-11-22] MEDS: Senna/Docusate Sodium 1 Tablet 2 TABLET PO (09:07)
[2024-11-22] MEDS: Enoxaparin 40 MG/0.4 ML Syringe SC (09:07)
[2024-11-22 10:00] VITALS: BP 149/67; PULSE 108; O2SAT 94
--- NOTE | 2024-11-22 11:53 | NURSING ---
This RN attempted x3 times to call [facility], engineering secretary answered directed x3 calls to unit.
== END 2024-11-22 11:30 | disposition skilled nursing facility (03) | DRG 563 ==
LOC: ED 23:31 → PCU 11-19 00:05
PROVIDERS: Admitting Provider Family Medicine; Emergency Provider Emergency Medicine; PCP Student in an Organized Health Care Education/Training Program; Visit Provider Internal Medicine
DX: S93.402A Sprain of unspecified ligament of left ankle, initial encounter (principal); Z68.42 Body mass index [BMI] 45.0-49.9, adult; G71.00 Muscular dystrophy, unspecified; R62.7 Adult failure to thrive; E11.65 Type 2 diabetes mellitus with hyperglycemia; I10 Essential (primary) hypertension; F41.8 Other specified anxiety disorders; E66.01 Morbid (severe) obesity due to excess calories; G47.33 Obstructive sleep apnea (adult) (pediatric); M62.50 Muscle wasting and atrophy, not elsewhere classified, unspecified site; E86.0 Dehydration; W19.XXXA Unspecified fall, initial encounter; M60.9 Myositis, unspecified; I89.0 Lymphedema, not elsewhere classified; J30.9 Allergic rhinitis, unspecified; M25.572 Pain in left ankle and joints of left foot; E66.813 Obesity, class 3; R53.1 Weakness; Z87.891 Personal history of nicotine dependence; Z99.89 Dependence on other enabling machines and devices; Z79.899 Other long term (current) drug therapy; Z98.890 Other specified postprocedural states